=== PATIENT | female | born 1985 | race American Indian/Alaskan Native ===

== ENCOUNTER 2016-09-16 14:07 | Inpatient (IN) | payer OTHER, MEDICAID ==
[2016-09-16 15:09] LABS: Hematocrit 35.8 % (30.3-42.9); Hemoglobin 12.4 gm/dl (10.1-14.3); Mean Corpuscular HGB Conc 35 % (30-34); Mean Corpuscular Hemoglobin 30 pg (28-32); Mean Corpuscular Volume 87 fl (79-97); Platelet Count 239 K/mm3 (140-440); Red Blood Count 4.13 M/mm3 (3.65-5.03); Red Cell Distribution Width 14.2 % (13.2-15.2); White Blood Count 11.6 K/mm3 (4.5-11.0)
[2016-09-16 15:25] LABS: Alanine Aminotransferase 19 units/L (7-56); Lactate Dehydrogenase 195 units/L (91-180); Uric Acid 5.5 mg/dL (3.5-7.6)
--- NOTE | 2016-09-16 15:27 | History and Physical Report ---
History of Present Illness Date of examination: 09/16/16 Chief complaint: my feet are swollen History of present illness: Pt is a 30 year old Surya female HUAN 01/[birth year] at 24w1d who presents with c/o progressively worsening bilateral lower extremity edema for the past week. Her blood pressure in the office was noted to be 150/80s and upon entry into triage her pressures were 150-170/70s. She denies headache, blurry vision, RUQ pain and scotomata. She has had care at [facility] since 10 wks complicated by genital herpes, Hemoglobin C trait and limited anatomy with subsequent APA consult. She is GBS unknown. She has no prior h/o hypertension. Past History Past Medical History: no pertinent history, other (obesity) Past Surgical History: no surgical history Family/Genetic History: diabetes Social history: no significant social history - Obstetrical History Expected Date of Delivery: 01/05/17 Actual Gestation: 24 Week(s) 1 Day(s) : 2 Para: 1 Hx # Term Pregnancies: 1 Number of Pregnancies: 0 Spontaneous Abortions: 0 Induced : 0 Number of Living Children: 1 Medications and Allergies Allergies Allergy/AdvReac Type Severity Reaction Status Date / Time No Known Allergies Allergy Unverified 09/16/16 14:50 Review of Systems All systems: negative - Vital Signs Vital signs: Vital Signs Pulse Pulse Ox 82 98 09/16/16 14:29 09/16/16 14:29 Temp Pulse Resp BP Pulse Ox 98.2 F 76 18 177/93 99 09/16/16 14:33 09/16/16 15:24 09/16/16 14:33 09/16/16 15:22 09/16/16 15:24 - Physical Exam Breasts: Positive: deferred Cardiovascular: Regular rate Lungs: Positive: Clear to auscultation Abdomen: Positive: soft (obese). Negative: tenderness Uterus: Positive: enlarged (gravid ) Extremities: Positive: edema (2+) - Obstetrical FHR: auscultation normal Uterine Contraction Monitor Mode: External Uterine Contraction Pattern: Absent Uterine Tone Measurement Phase: Resting Results Result Diagrams: 09/16/16 14:40 09/16/16 14:40 Abnormal lab results 09/16/16 09/16/16 Range/Units 14:40 14:40 WBC 11.6 H (4.5-11.0) K/mm3 MCHC 35 H (30-34) % Creatinine 0.6 L (0.7-1.2) mg/dL Lactate Dehydrogenase 195 H (91-180) units/L All other labs normal. Assessment and Plan A: IUP at 24w1d Gestational Hypertension vs Preeclampsia Bilateral lower extremity edema Obesity P: Admit to labor and delivery Magnesium sulfate for seizure prophylaxis and neuroprotection Betamethasone for lung maturity ultrasound Begin 24 hr urine collection Antihypertensives as needed for BP greater than 160/110 MFM consult Closely monitor maternal and status
[2016-09-16] MEDS ORDERED: CALCIUM GLUCONATE IV ONE (15:29)
[2016-09-16] MEDS ORDERED: MAGNESIUM SULFATE 4GM/100ML 4 GM/100 ML BAG IV ONE (15:29)
[2016-09-16] MEDS ORDERED: COLACE PO PRN (15:29)
[2016-09-16] MEDS ORDERED: CELESTONE SOLUSPAN IM SCH (16:00)
[2016-09-16] MEDS ORDERED: MAGNESIUM SULFATE 40GM/1000ML 40 GM/1,000 ML BAG IV SCH (16:00)
[2016-09-16 16:05] LABS: Bilirubin,Urine Negative (Negative); Ketones,Urine Negative (Negative)
[2016-09-16 16:06] LABS: Blood,Urine Negative (Negative)
[2016-09-16 16:07] LABS: Leukocyte Esterase,Urine Negative (Negative); Nitrite,Urine Negative (Negative); Urobilinogen,Urine < 2.0 mg/dL (<2.0)
[2016-09-16 16:09] LABS: Mucus,Urine 3+ /HPF
[2016-09-16] MEDS: LACTATED RINGERS 1,000 ML IV SCH (17:50)
[2016-09-16] MEDS: APRESOLINE IV PRN ×2 (21:07→21:59)
[2016-09-17] MEDS: LACTATED RINGERS 1,000 ML IV SCH ×3 (02:29→22:21)
--- NOTE | 2016-09-17 08:46 | Consultation ---
History of Present Illness Consult date: 09/17/16 Requesting physician: KATRINA FONG History of present illness: 30 y/o HUAN 01/04/17 EGA at 24 2/7 weeks presenting with Elevated BP's and Edema Sent in from OB's office on 09/16/16 with elevated BP's in 150's/80's Triage [facility] BP's 150-170's Now BP's 162/83 and increased to 180/91 Sig Lower ext edema 3/4 DTR's 02/23 but on Mg Denies H/O CHTN Denies SARAVIA's Scot[place] or RUQ Pain Denies vag bleed, ctx's or leakage Pos FM's No complications ------ Labs 09/16/16 AST/ALT at 20/19 Plts at 239 H/h at 12.4/35.8 LDH increased at 190 Urine spot Prot at 100 serum creat at .6 ------ OB History 2004 at Term F 8'9" - No complications ------ No med , No Surg, Pos H/O HSV per ob note, No C/D/D, NKA ------ EFM -- 150's ----- [facility] US 09/16/16 JOSÉ at 10 cm 2 small fibroids - 2cm CL at 3.8 cm EFW ??? Not done ----- Exam Abd gravid no RUQ Pain Ext NT, 2-3/4 edema , no clonus ----- Past History Past Medical History: no pertinent history, other (obesity) Past Surgical History: no surgical history Family/Genetic History: diabetes - Obstetrical History : 2 Medications and Allergies Allergies Allergy/AdvReac Type Severity Reaction Status Date / Time No Known Allergies Allergy Unverified 09/16/16 14:50 Active Meds: Active Medications Acetaminophen (Tylenol) 650 mg PO Q4H PRN PRN Reason: Pain MILD(1-3)/Fever >100.5/SARAVIA Betamethasone Acet/Betameth SodPhos (Celestone Soluspan) 12 mg IM Q24HR GERMAINE Last Admin: 09/16/16 18:07 Dose: 12 mg Docusate Sodium (Colace) 100 mg PO Q12H PRN PRN Reason: Constipation Hydralazine HCl (Apresoline) 5 mg IV Q30MIN PRN PRN Reason: HTN SYS>170 &/OR DAYANA BP>110 Last Admin: 09/16/16 21:59 Dose: 5 mg Lactated Ringer's (Lactated Ringers) 1,000 mls @ 125 mls/hr IV DIRECT GERMAINE Last Admin: 09/17/16 02:29 Dose: 125 mls/hr Magnesium Sulfate (Magnesium Sulfate 40gm/1000ml) 40 gm in 1,000 mls @ 25 mls/ hr IV TITR GERMAINE PRN Reason: 1 GM/HR Stop: 09/17/16 15:59 Last Admin: 09/16/16 18:28 Dose: 1 gm/hr, 25 mls/hr Labetalol HCl (Normodyne) 100 mg PO BID GERMAINE Multivitamins/Iron/Calcium ( Vitamin) 1 each PO QDAY GERMAINE - Vital Signs Vital signs: Vital Signs Pulse Pulse Ox 82 98 09/16/16 14:29 09/16/16 14:29 Temp Pulse Resp BP Pulse Ox 97.7 F 82 20 180/91 98 09/17/16 07:40 09/17/16 08:34 09/17/16 07:40 09/17/16 08:19 09/17/16 08:34 Results Result Diagrams: 09/16/16 14:40 09/16/16 14:40 Abnormal lab results 09/16/16 09/16/16 09/17/16 Range/Units 14:40 14:40 00:00 WBC 11.6 H (4.5-11.0) K/mm3 MCHC 35 H (30-34) % Creatinine 0.6 L (0.7-1.2) mg/dL Magnesium 3.30 H (1.7-2.3) mg/dL Lactate Dehydrogenase 195 H (91-180) units/L 09/17/16 Range/Units 05:30 WBC (4.5-11.0) K/mm3 MCHC (30-34) % Creatinine (0.7-1.2) mg/dL Magnesium 3.40 H (1.7-2.3) mg/dL Lactate Dehydrogenase (91-180) units/L All other labs normal. Assessment and Plan Impression: 1. [place] IUP at 24 2/7 weeks 2. Gest HTN R/O Preeclampsia - 24 Hour Urine Pending 3. HSV per OB Note Recommendations: 1. Steroids for FLM 2. Mg for neuroprophylaxis 3. NICU Consult 4. PIH Labs repeat tomorrow CBC, CMP, LDH and Uric Acid 5. Labetalol 100 mg BID PO 6. Delivery for S/S of Preeclampsia with Severe Features on Compromise 7. IV hydralazine for BP's Sys > 160 or Diast > 110 8. Seq Leg Compressors 9. Please order US for EFW if Not Done 10. BPP and Cord dopplers starting at 26 weeks (twice per week) if still in hosp 11. EFM
[2016-09-17] MEDS: NORMODYNE PO SCH ×2 (10:31→22:17)
[2016-09-17] MEDS: PRENATAL VITAMIN PO SCH (10:32)
--- NOTE | 2016-09-17 10:48 | Ultrasound Report ---
ULTRASOUND OB LIMITED History: Preeclampsia, well being Technique: Transabdominal ultrasound with Doppler interrogation. Gestation: Single Position: Transverse, head to maternal left Amniotic Fluid: Normal JOSÉ = 10.0 cm Placenta: Fundal, right lateral Placental Grade: 0 Heart Rate: 156 BPM Cervical length: 3.8 cm (Normal > 3 cm)
--- NOTE | 2016-09-17 18:36 | Progress Note ---
Assessment and Plan HD 2 for this with chronic hypertension vs. pre-eclampsia. Patient still denies headache or visual changes. Her bps this afternoon were mostly in 130- 140/60-80. She received her first dose of steroids and will receive the second today. 24 hour urine is pending. Will repeat labs in the am Continue care. Subjective - Subjective Date of service: 09/17/16 Principal diagnosis: Chronic hypertension Patient reports: new complaints, movement normal Objective - Vital Signs Vital Signs: Vital Signs - 12hr 09/17/16 09/17/16 09/17/16 06:34 06:39 06:44 Temperature Pulse Rate 82 85 84 Respiratory Rate Blood Pressure O2 Sat by Pulse 98 97 98 Oximetry 09/17/16 09/17/16 09/17/16 06:49 06:52 06:54 Temperature Pulse Rate 86 80 83 Respiratory Rate Blood Pressure O2 Sat by Pulse 96 94 95 Oximetry 09/17/16 09/17/16 09/17/16 06:58 06:59 07:03 Temperature Pulse Rate 84 87 83 Respiratory Rate Blood Pressure O2 Sat by Pulse 94 96 93 Oximetry 09/17/16 09/17/16 09/17/16 07:04 07:09 07:14 Temperature Pulse Rate 83 84 80 Respiratory Rate Blood Pressure O2 Sat by Pulse 94 94 97 Oximetry 09/17/16 09/17/16 09/17/16 07:19 07:24 07:29 Temperature Pulse Rate 86 86 81 Respiratory Rate Blood Pressure 170/88 162/85 O2 Sat by Pulse 98 98 97 Oximetry 09/17/16 09/17/16 09/17/16 07:34 07:39 07:40 Temperature 97.7 F Pulse Rate 77 80 85 Respiratory 20 Rate Blood Pressure 162/85 O2 Sat by Pulse 99 98 Oximetry 09/17/16 09/17/16 09/17/16 07:44 07:49 07:54 Temperature Pulse Rate 82 82 86 Respiratory Rate Blood Pressure O2 Sat by Pulse 98 97 93 Oximetry 09/17/16 09/17/16 09/17/16 07:59 08:04 08:09 Temperature Pulse Rate 86 87 82 Respiratory Rate Blood Pressure O2 Sat by Pulse 96 97 97 Oximetry 09/17/16 09/17/16 09/17/16 08:14 08:19 08:24 Temperature Pulse Rate 83 82 86 Respiratory Rate Blood Pressure 180/91 O2 Sat by Pulse 97 97 98 Oximetry 09/17/16 09/17/16 09/17/16 08:29 08:34 08:39 Temperature Pulse Rate 86 82 82 Respiratory Rate Blood Pressure O2 Sat by Pulse 98 98 96 Oximetry 09/17/16 09/17/16 09/17/16 08:44 08:46 09:12 Temperature Pulse Rate 83 81 88 Respiratory Rate Blood Pressure 160/88 O2 Sat by Pulse 96 98 Oximetry 09/17/16 09/17/16 09/17/16 09:15 09:17 09:19 Temperature Pulse Rate 60 84 81 Respiratory Rate Blood Pressure 143/93 O2 Sat by Pulse 88 99 Oximetry 09/17/16 09/17/16 09/17/16 09:22 09:27 09:32 Temperature Pulse Rate 83 87 83 Respiratory Rate Blood Pressure O2 Sat by Pulse 98 97 97 Oximetry 09/17/16 09/17/16 09/17/16 09:37 09:42 09:47 Temperature Pulse Rate 80 89 80 Respiratory Rate Blood Pressure O2 Sat by Pulse 99 98 98 Oximetry 09/17/16 09/17/16 09/17/16 09:52 09:57 10:02 Temperature Pulse Rate 95 H 92 H 88 Respiratory Rate Blood Pressure O2 Sat by Pulse 97 97 96 Oximetry 09/17/16 09/17/16 09/17/16 10:07 10:12 10:16 Temperature Pulse Rate 95 H 88 83 Respiratory Rate Blood Pressure 152/81 O2 Sat by Pulse 98 98 Oximetry 09/17/16 09/17/16 09/17/16 10:17 10:19 10:22 Temperature Pulse Rate 83 82 82 Respiratory Rate Blood Pressure 166/79 O2 Sat by Pulse 97 97 Oximetry 09/17/16 09/17/16 09/17/16 10:27 10:31 10:32 Temperature Pulse Rate 81 82 89 Respiratory Rate Blood Pressure 166/79 O2 Sat by Pulse 98 98 Oximetry 09/17/16 09/17/16 09/17/16 10:37 10:42 10:47 Temperature Pulse Rate 87 87 79 Respiratory Rate Blood Pressure O2 Sat by Pulse 96 98 97 Oximetry 09/17/16 09/17/16 09/17/16 10:52 10:57 11:02 Temperature Pulse Rate 83 82 83 Respiratory Rate Blood Pressure O2 Sat by Pulse 96 96 96 Oximetry 0709/17/16 09/17/16 11:07 11:12 11:17 Temperature Pulse Rate 81 81 90 Respiratory Rate Blood Pressure O2 Sat by Pulse 96 96 97 Oximetry 09/17/16 09/17/16 09/17/16 11:19 11:22 11:27 Temperature Pulse Rate 85 85 96 H Respiratory Rate Blood Pressure 160/80 O2 Sat by Pulse 97 97 Oximetry 09/17/16 09/17/16 09/17/16 11:32 11:37 11:42 Temperature Pulse Rate 85 95 H 96 H Respiratory Rate Blood Pressure O2 Sat by Pulse 97 97 97 Oximetry 09/17/16 09/17/16 09/17/16 11:47 11:52 11:57 Temperature Pulse Rate 91 H 89 91 H Respiratory Rate Blood Pressure O2 Sat by Pulse 97 96 95 Oximetry 09/17/16 09/17/16 09/17/16 12:02 12:07 12:12 Temperature Pulse Rate 89 90 97 H Respiratory Rate Blood Pressure O2 Sat by Pulse 97 97 97 Oximetry 09/17/16 09/17/16 09/17/16 12:17 12:19 12:22 Temperature Pulse Rate 94 H 93 H 107 H Respiratory Rate Blood Pressure 145/79 O2 Sat by Pulse 97 97 Oximetry 09/17/16 09/17/16 09/17/16 12:27 12:32 12:37 Temperature Pulse Rate 91 H 89 88 Respiratory Rate Blood Pressure O2 Sat by Pulse 98 98 99 Oximetry 09/17/16 09/17/16 09/17/16 12:42 12:47 12:52 Temperature Pulse Rate 89 90 89 Respiratory Rate Blood Pressure O2 Sat by Pulse 98 99 98 Oximetry 09/17/16 09/17/16 09/17/16 12:57 13:02 13:07 Temperature Pulse Rate 90 94 H 94 H Respiratory Rate Blood Pressure O2 Sat by Pulse 99 97 97 Oximetry 09/17/16 09/17/16 09/17/16 13:12 13:14 13:17 Temperature Pulse Rate 85 131 H 95 H Respiratory Rate Blood Pressure O2 Sat by Pulse 99 81 L 97 Oximetry 09/17/16 09/17/16 09/17/16 13:19 13:22 13:27 Temperature Pulse Rate 83 89 91 H Respiratory Rate Blood Pressure 136/71 O2 Sat by Pulse 99 97 Oximetry 09/17/16 09/17/16 09/17/16 13:32 13:37 13:38 Temperature Pulse Rate 93 H 89 96 H Respiratory Rate Blood Pressure O2 Sat by Pulse 100 99 92 Oximetry 09/17/16 09/17/16 09/17/16 13:42 13:47 13:52 Temperature Pulse Rate 90 90 91 H Respiratory Rate Blood Pressure O2 Sat by Pulse 100 99 98 Oximetry 09/17/16 09/17/16 09/17/16 13:57 14:02 14:07 Temperature Pulse Rate 93 H 91 H 90 Respiratory Rate Blood Pressure O2 Sat by Pulse 98 98 98 Oximetry 09/17/16 09/17/16 09/17/16 14:12 14:17 14:19 Temperature Pulse Rate 88 88 89 Respiratory Rate Blood Pressure 132/63 O2 Sat by Pulse 97 97 Oximetry 09/17/16 09/17/16 09/17/16 14:22 14:27 14:32 Temperature Pulse Rate 87 88 89 Respiratory Rate Blood Pressure O2 Sat by Pulse 99 98 97 Oximetry 09/17/16 09/17/16 09/17/16 14:37 14:42 14:47 Temperature Pulse Rate 98 H 88 87 Respiratory Rate Blood Pressure O2 Sat by Pulse 97 98 95 Oximetry 09/17/16 09/17/16 09/17/16 14:52 14:57 15:02 Temperature Pulse Rate 90 85 100 H Respiratory Rate Blood Pressure O2 Sat by Pulse 94 97 98 Oximetry 09/17/16 09/17/16 09/17/16 15:07 15:12 15:14 Temperature Pulse Rate 88 89 85 Respiratory Rate Blood Pressure O2 Sat by Pulse 97 96 94 Oximetry 09/17/16 09/17/16 09/17/16 15:17 15:19 15:22 Temperature Pulse Rate 86 89 86 Respiratory Rate Blood Pressure 141/75 O2 Sat by Pulse 96 97 Oximetry 09/17/16 09/17/16 09/17/16 15:27 15:32 15:37 Temperature Pulse Rate 84 80 82 Respiratory Rate Blood Pressure O2 Sat by Pulse 97 94 98 Oximetry 09/17/16 09/17/16 09/17/16 15:42 15:47 15:52 Temperature Pulse Rate 79 81 84 Respiratory Rate Blood Pressure O2 Sat by Pulse 97 97 97 Oximetry 09/17/16 09/17/16 09/17/16 15:57 16:02 16:07 Temperature Pulse Rate 81 83 79 Respiratory Rate Blood Pressure O2 Sat by Pulse 99 96 97 Oximetry 09/17/16 09/17/16 09/17/16 16:12 16:17 16:19 Temperature Pulse Rate 82 86 85 Respiratory Rate Blood Pressure 137/65 O2 Sat by Pulse 98 99 Oximetry 09/17/16 09/17/16 09/17/16 16:22 16:27 16:32 Temperature Pulse Rate 84 89 83 Respiratory Rate Blood Pressure O2 Sat by Pulse 97 97 98 Oximetry 09/17/16 09/17/16 09/17/16 16:37 16:42 16:47 Temperature Pulse Rate 83 84 79 Respiratory Rate Blood Pressure O2 Sat by Pulse 98 98 99 Oximetry 09/17/16 09/17/16 09/17/16 16:52 16:57 17:02 Temperature Pulse Rate 83 84 80 Respiratory Rate Blood Pressure O2 Sat by Pulse 99 99 99 Oximetry 09/17/16 09/17/16 09/17/16 17:07 17:12 17:17 Temperature Pulse Rate 82 82 82 Respiratory Rate Blood Pressure O2 Sat by Pulse 98 98 98 Oximetry 09/17/16 09/17/16 09/17/16 17:22 17:27 17:32 Temperature Pulse Rate 88 84 82 Respiratory Rate Blood Pressure O2 Sat by Pulse 98 99 97 Oximetry 09/17/16 09/17/16 09/17/16 17:37 17:42 17:47 Temperature Pulse Rate 85 87 83 Respiratory Rate Blood Pressure O2 Sat by Pulse 97 97 98 Oximetry 09/17/16 09/17/16 09/17/16 17:52 17:57 18:02 Temperature Pulse Rate 83 85 80 Respiratory Rate Blood Pressure O2 Sat by Pulse 97 98 98 Oximetry 09/17/16 09/17/16 09/17/16 18:07 18:12 18:17 Temperature Pulse Rate 91 H 83 87 Respiratory Rate Blood Pressure O2 Sat by Pulse 99 98 98 Oximetry 09/17/16 09/17/16 09/17/16 18:19 18:22 18:27 Temperature Pulse Rate 77 82 81 Respiratory Rate Blood Pressure 166/84 O2 Sat by Pulse 99 98 Oximetry - Exam Breasts: deferred Cardiovascular: Regular rate, Normal S1, Normal S2 Lungs: Clear to auscultation, Normal air movement Extremities: edema (+1 from knees to ankles) Deep Tendon Reflex Grade: Normal +2 - Labs Labs: Abnormal Labs 09/16/16 09/16/16 09/17/16 14:40 14:40 00:00 WBC 11.6 H MCHC 35 H Creatinine 0.6 L Magnesium 3.30 H Lactate Dehydrogenase 195 H 09/17/16 09/17/16 05:30 12:11 WBC MCHC Creatinine Magnesium 3.40 H 3.50 H Lactate Dehydrogenase Laboratory Results - last 24 hr 09/17/16 09/17/16 09/17/16 00:00 05:30 12:11 Magnesium 3.30 H 3.40 H 3.50 H
[2016-09-18] MEDS: LACTATED RINGERS 1,000 ML IV SCH (10:04)
[2016-09-18] MEDS: NORMODYNE PO SCH ×2 (10:05→22:02)
[2016-09-18] MEDS: PRENATAL VITAMIN PO SCH (10:05)
[2016-09-19] MEDS: LACTATED RINGERS 1,000 ML IV SCH ×3 (04:03→19:57)
[2016-09-19] MEDS: APRESOLINE IV PRN ×4 (04:56→17:26)
--- NOTE | 2016-09-19 07:43 | Admit Criteria Form ---
Admission Criteria Documentation: HYPERTENSIVE DISORDERS OF Clinical Indications for Admission to Inpatient Care ( [place]/check or initial the applicable condition/criteria) Admission is indicated for 1 or more of the following (1)(2)(3)(4)(5)(6)(7): [ ]I. Eclampsia[A][B] [ ]II. Preeclampsia with severe features (ie, severe preeclampsia) indicated by 1 or more of the following[B][C]: [ ]a) SBP greater than or equal to 160 mm Hg or DBP greater than or equal to 110 mm Hg on 2 occasions at least 4 hours apart while the patient is at bed rest ( UNLESS antihypertensive therapy is initiated before this time)(5) [ ]b) Platelet count less than 100,000/mm3 (100 x109/L) [ ]c) Impaired liver function as indicated by 1 or more of the following: [ ]i) Elevation of liver enzymes (eg, SGOT, SGPT) to twice normal concentration [ ]ii) Severe persistent right upper quadrant or epigastric pain unresponsive to medication and not accounted for by alternative diagnosis [ ]d) Progressive renal insufficiency indicated by 1 or more of the following : [ ]i) Serum creatinine concentration greater than 1.1 mg/dL (97 micromoles/L) [ ]ii) Doubling (from baseline) of serum creatinine concentration in the absence of other renal disease [ ]e) Pulmonary edema [ ]f) Cerebral or visual symptoms (eg, headache, Altered mental status, changes in vision) [ ]III. Delivery planned due to nonsevere preeclampsia as indicated by ALL of the following: [ ]a) Nonsevere preeclampsia present as indicated by ALL of the following: [ ]i) Woman at 20 or more weeks' gestation [ ]ii) New-onset SBP greater than or equal to 140 mm Hg but less than 160 mm Hg or DBP greater than or equal to 90 mm Hg but less than 110 mm Hg on 2 occasions at least 4 hours apart [ ]iii) Proteinuria present as indicated by 1 or more of the following : [ ]A) Urinary protein excretion greater than or equal to 300 mg per 24- hour collection (or this amount extrapolated from a shorter timed collection) [ ]B) Protein/creatinine ratio greater than or equal to 0.3 (measured in mg/dL) [ ]b) Delivery indicated due to 1 or more of the following: [ ]i) Gestational age of 37 0/7 weeks or more [ ]ii) Gestational age of 34 0/7 weeks to 36 6/7 weeks and 1 or more of the following: [ ]A) Progressive labor or rupture of membranes [ ]B) Abnormal biophysical profile [ ]C) Suspected abruptio placentae [ ]D) Ultrasound estimate of weight less than 5th percentile [ ]E) Other indication for delivery [ ]IV. Delivery planned due to gestational hypertension[D] because of 1 or more of the following: [ ]a) Delivery indicated because gestational age of 37 0/7 weeks or more has been reached [ ]b) Gestational age of 34 0/7 weeks to 36 6/7 weeks for which delivery is indicated because of 1 or more of the following: [ ]i) Progressive labor or rupture of membranes [ ]ii). Abnormal biophysical profile [ ]iii). Suspected abruptio placentae [ ]iv). Ultrasound estimate of weight less than 5th percentile [ ]v). Other indication for delivery [ ]V. Hypertension of any category[E] during with acute end organ damage as indicated by 1 or more of the following: [ ]a) Hypertensive encephalopathy (eg, Altered mental status that is severe or persistent )(13) [ ]b) Cerebral infarction [ ]c) Intracranial hemorrhage [ ]d) Myocardial ischemia or infarction [ ]e) Pulmonary edema f) Aortic dissection [ ]f) Aortic dissection [ ]g) Seizure [ ]h) Papilledema [ ]i) Microangiopathic hemolytic anemia [ ]j) Visual loss [ ]k) Acute renal failure [ ]) Hypertension during pregnancywith evidence of compromise as indicated by 1 or more of the following: [ ]a) Abnormal heart tones [ ]b) Abnormal stress test [ ]c) Abnormal biophysical profile [X]VII) patient requires inpatient control of blood pressure indicated by (see Hypertensive Disorders of : Observation Care ISC guideline as appropriate) ALL of the following: [X]a) SBP is greater than or equal to 160 mm Hg or DBP is greater than or equal to 105 mm Hg [X]b) Blood pressure cannot be reduced below these levels with outpatient or observation care treatment (eg, oral medications not effective) Extended stay beyond goal length of stay may be needed for (1)(2)(12)(27) : [ ]a) Eclampsia [ ]b) Ongoing compromise [ ]c) Complications of hypertensive disorders of [ ]d) Active comorbidities (eg, heart failure, poorly controlled diabetes, renal insufficiency) [ ]e) Persistent hypertension [ ]f) Delivery planned The original [facility] [employer] / TLL content created by [facility] has been revised. The portions of the content which have been revised are identified through the use of italic text or in bold, and [facility] has neither reviewed nor approved the modified material. All other unmodified content is copyright [facility]. Please see references footnoted in the original [facility] edition 2017. Admission Criteria Met: Yes
--- NOTE | 2016-09-19 09:57 | Progress Note ---
Assessment and Plan A/P IUP 24+3 weeks gest HTN vs Pree PIH labs today BP 150-170/70s on labetolol 100 mg bid continue present mgt Subjective - Subjective Date of service: 09/19/16 Principal diagnosis: Chronic hypertension Patient reports: movement normal, no new complaints, no loss of fluid, no vaginal bleeding, no contractions Objective - Vital Signs Vital Signs: Vital Signs - 12hr 09/18/16 09/18/16 09/18/16 21:59 22:02 22:04 Pulse Rate 72 80 79 Blood Pressure 184/87 O2 Sat by Pulse 99 99 Oximetry 09/18/16 09/18/16 09/18/16 22:09 22:14 22:15 Pulse Rate 72 82 76 Blood Pressure 146/71 O2 Sat by Pulse 99 99 Oximetry 09/18/16 09/18/16 09/18/16 22:24 22:29 22:34 Pulse Rate 90 74 75 Blood Pressure O2 Sat by Pulse 97 97 98 Oximetry 09/18/16 09/18/16 09/18/16 22:39 22:44 22:49 Pulse Rate 80 85 85 Blood Pressure O2 Sat by Pulse 98 99 100 Oximetry 09/18/16 09/18/16 09/18/16 22:54 22:59 23:04 Pulse Rate 76 75 79 Blood Pressure 156/73 O2 Sat by Pulse 99 99 99 Oximetry 09/18/16 09/18/16 09/18/16 23:14 23:19 23:24 Pulse Rate 75 74 77 Blood Pressure O2 Sat by Pulse 99 98 99 Oximetry 09/18/16 09/18/16 09/18/16 23:29 23:34 23:39 Pulse Rate 74 71 80 Blood Pressure O2 Sat by Pulse 98 100 99 Oximetry 09/18/16 09/18/16 09/18/16 23:44 23:49 23:53 Pulse Rate 73 90 74 Blood Pressure 152/71 O2 Sat by Pulse 99 99 Oximetry 09/18/16 09/19/16 09/19/16 23:54 00:00 00:05 Pulse Rate 78 85 68 Blood Pressure O2 Sat by Pulse 98 98 98 Oximetry 09/19/16 09/19/16 09/19/16 00:10 00:15 00:20 Pulse Rate 79 73 69 Blood Pressure O2 Sat by Pulse 97 98 97 Oximetry 09/19/16 09/19/16 09/19/16 00:25 00:30 00:35 Pulse Rate 69 78 69 Blood Pressure O2 Sat by Pulse 97 99 98 Oximetry 09/19/16 09/19/16 09/19/16 00:40 00:45 00:50 Pulse Rate 88 71 66 Blood Pressure O2 Sat by Pulse 99 98 100 Oximetry 09/19/16 09/19/16 09/19/16 00:54 00:55 01:00 Pulse Rate 65 71 69 Blood Pressure 153/69 O2 Sat by Pulse 99 99 Oximetry 09/19/16 09/19/16 09/19/16 01:05 01:10 01:15 Pulse Rate 70 70 68 Blood Pressure O2 Sat by Pulse 98 98 98 Oximetry 09/19/16 09/19/16 09/19/16 01:20 01:25 01:30 Pulse Rate 69 68 73 Blood Pressure O2 Sat by Pulse 98 99 98 Oximetry 09/19/16 09/19/16 09/19/16 01:35 01:40 01:43 Pulse Rate 69 71 87 Blood Pressure O2 Sat by Pulse 98 98 94 Oximetry 09/19/16 09/19/16 09/19/16 01:45 01:50 01:53 Pulse Rate 73 81 83 Blood Pressure 152/81 O2 Sat by Pulse 97 99 Oximetry 09/19/16 09/19/16 09/19/16 01:55 02:02 02:07 Pulse Rate 87 88 63 Blood Pressure O2 Sat by Pulse 97 98 98 Oximetry 09/19/16 09/19/16 09/19/16 02:12 02:17 02:22 Pulse Rate 62 61 64 Blood Pressure O2 Sat by Pulse 98 99 98 Oximetry 09/19/16 09/19/16 09/19/16 02:27 02:32 02:37 Pulse Rate 61 64 68 Blood Pressure O2 Sat by Pulse 99 99 99 Oximetry 09/19/16 09/19/16 09/19/16 02:42 02:47 02:52 Pulse Rate 64 64 62 Blood Pressure O2 Sat by Pulse 99 99 99 Oximetry 09/19/16 09/19/16 09/19/16 02:53 02:57 03:02 Pulse Rate 65 64 74 Blood Pressure 179/81 O2 Sat by Pulse 99 98 Oximetry 09/19/16 09/19/16 09/19/16 03:05 03:10 03:11 Pulse Rate 57 L 67 90 Blood Pressure O2 Sat by Pulse 55 L 58 L 100 Oximetry 09/19/16 09/19/16 09/19/16 03:16 03:21 03:23 Pulse Rate 58 L 63 71 Blood Pressure O2 Sat by Pulse 99 98 89 Oximetry 09/19/16 09/19/16 09/19/16 03:26 03:31 03:36 Pulse Rate 63 70 58 L Blood Pressure O2 Sat by Pulse 99 99 98 Oximetry 09/19/16 09/19/16 09/19/16 03:41 03:46 03:51 Pulse Rate 60 57 L 57 L Blood Pressure O2 Sat by Pulse 97 98 99 Oximetry 09/19/16 09/19/16 09/19/16 03:53 03:56 04:01 Pulse Rate 68 60 59 L Blood Pressure 185/82 O2 Sat by Pulse 98 98 Oximetry 09/19/16 09/19/16 09/19/16 04:06 04:11 04:16 Pulse Rate 61 57 L 79 Blood Pressure O2 Sat by Pulse 98 99 97 Oximetry 09/19/16 09/19/16 09/19/16 04:21 04:26 04:31 Pulse Rate 56 L 60 59 L Blood Pressure O2 Sat by Pulse 99 98 98 Oximetry 09/19/16 09/19/16 09/19/16 04:36 04:41 04:43 Pulse Rate 60 60 76 Blood Pressure 204/104 O2 Sat by Pulse 98 98 Oximetry 09/19/16 09/19/16 09/19/16 04:45 04:46 04:56 Pulse Rate 75 81 82 Blood Pressure 168/73 168/73 O2 Sat by Pulse 98 99 Oximetry 09/19/16 09/19/16 09/19/16 05:01 05:06 05:11 Pulse Rate 68 67 68 Blood Pressure O2 Sat by Pulse 98 100 99 Oximetry 09/19/16 09/19/16 09/19/16 05:16 05:21 05:26 Pulse Rate 68 70 80 Blood Pressure O2 Sat by Pulse 100 100 100 Oximetry 09/19/16 09/19/16 09/19/16 05:31 05:36 05:41 Pulse Rate 65 58 L 64 Blood Pressure O2 Sat by Pulse 99 98 100 Oximetry 09/19/16 09/19/16 09/19/16 05:46 05:51 05:53 Pulse Rate 65 70 84 Blood Pressure 176/90 O2 Sat by Pulse 99 99 Oximetry 09/19/16 09/19/16 09/19/16 05:56 06:01 06:06 Pulse Rate 67 81 Blood Pressure O2 Sat by Pulse 99 99 92 Oximetry 09/19/16 09/19/16 09/19/16 06:11 06:12 06:16 Pulse Rate 67 73 67 Blood Pressure 172/79 O2 Sat by Pulse 99 69 L 99 Oximetry 09/19/16 09/19/16 09/19/16 06:21 06:26 06:30 Pulse Rate 65 67 77 Blood Pressure 172/79 O2 Sat by Pulse 99 99 Oximetry 09/19/16 09/19/16 09/19/16 06:31 06:32 06:36 Pulse Rate 63 66 69 Blood Pressure 189/91 O2 Sat by Pulse 98 98 Oximetry 09/19/16 09/19/16 09/19/16 06:41 06:46 06:51 Pulse Rate 71 80 68 Blood Pressure O2 Sat by Pulse 99 98 99 Oximetry 09/19/16 09/19/16 09/19/16 06:56 07:01 07:02 Pulse Rate 73 66 68 Blood Pressure 175/82 O2 Sat by Pulse 99 99 Oximetry 09/19/16 09/19/16 09/19/16 07:06 07:11 07:16 Pulse Rate 71 69 65 Blood Pressure O2 Sat by Pulse 99 99 99 Oximetry 09/19/16 09/19/16 09/19/16 07:21 07:26 07:31 Pulse Rate 66 65 66 Blood Pressure O2 Sat by Pulse 99 99 99 Oximetry 09/19/16 09/19/16 09/19/16 07:32 07:38 07:43 Pulse Rate 71 82 74 Blood Pressure 175/81 O2 Sat by Pulse 99 98 Oximetry 09/19/16 09/19/16 09/19/16 07:48 07:53 07:58 Pulse Rate 70 82 70 Blood Pressure O2 Sat by Pulse 97 99 99 Oximetry 09/19/16 09/19/16 09/19/16 08:03 08:08 08:13 Pulse Rate 68 67 68 Blood Pressure O2 Sat by Pulse 99 99 99 Oximetry 09/19/16 09/19/16 09/19/16 08:18 08:23 08:29 Pulse Rate 68 72 74 Blood Pressure O2 Sat by Pulse 100 90 100 Oximetry 09/19/16 09/19/16 09/19/16 08:31 08:32 08:34 Pulse Rate 70 72 73 Blood Pressure 179/84 152/77 O2 Sat by Pulse 99 Oximetry 09/19/16 09/19/16 09/19/16 08:39 08:42 08:44 Pulse Rate 75 73 71 Blood Pressure 156/83 O2 Sat by Pulse 99 99 Oximetry 09/19/16 09/19/16 09/19/16 08:49 08:54 08:59 Pulse Rate 74 74 74 Blood Pressure O2 Sat by Pulse 100 99 99 Oximetry 09/19/16 09/19/16 09/19/16 09:04 09:09 09:14 Pulse Rate 70 78 74 Blood Pressure O2 Sat by Pulse 99 98 100 Oximetry 09/19/16 09/19/16 09/19/16 09:19 09:24 09:29 Pulse Rate 77 79 75 Blood Pressure O2 Sat by Pulse 99 99 98 Oximetry 09/19/16 09/19/16 09/19/16 09:33 09:34 09:39 Pulse Rate 67 72 85 Blood Pressure O2 Sat by Pulse 89 99 99 Oximetry 09/19/16 09/19/16 09/19/16 09:42 09:44 09:49 Pulse Rate 68 75 80 Blood Pressure 162/77 O2 Sat by Pulse 99 99 Oximetry - Exam Breasts: deferred Cardiovascular: Regular rate, Normal S1 Abdomen: Present: normal appearance, soft, normal bowel sounds Vulva: both: normal Uterus: Present: normal, firm. Absent: bogginess, tenderness FHR: auscultation normal, category 1 Uterine Contraction Monitor Mode: External - Labs Labs: Abnormal Labs 09/16/16 09/16/16 09/16/16 14:40 14:40 15:34 WBC 11.6 H MCHC 35 H Creatinine 0.6 L Magnesium Lactate Dehydrogenase 195 H Ur Total Protein 24 Hr 966.00 H Urine Total Protein 46 H 09/17/16 09/17/16 09/17/16 00:00 05:30 12:11 WBC MCHC Creatinine Magnesium 3.30 H 3.40 H 3.50 H Lactate Dehydrogenase Ur Total Protein 24 Hr Urine Total Protein 09/17/16 18:02 WBC MCHC Creatinine Magnesium 3.60 H Lactate Dehydrogenase Ur Total Protein 24 Hr Urine Total Protein
[2016-09-19] MEDS: NORMODYNE PO SCH ×3 (10:23→22:01)
[2016-09-19] MEDS: PRENATAL VITAMIN PO SCH (10:23)
[2016-09-19 12:28] LABS: Basophils % (Auto) 0.2 % (0.0-1.8); Eosinophils % (Auto) 0.1 % (0.0-4.3); Hematocrit 34.6 % (30.3-42.9); Hemoglobin 11.7 gm/dl (10.1-14.3); Mean Corpuscular HGB Conc 34 % (30-34); Mean Corpuscular Hemoglobin 30 pg (28-32); Mean Corpuscular Volume 88 fl (79-97); Platelet Count 239 K/mm3 (140-440); Red Blood Count 3.92 M/mm3 (3.65-5.03); Red Cell Distribution Width 14.6 % (13.2-15.2); White Blood Count 15.3 K/mm3 (4.5-11.0)
--- NOTE | 2016-09-19 12:46 | Consultation ---
History of Present Illness Reason for consult: other (Pt is a 30 year old female HUAN [birth year] at 24w4d who presented with complaint of progressively worsening bilateral lower extremity edema for the past week. Her blood pressure in the office was noted to be 150/80s and upon entry into triage her pressures were 150-170/70s. She denies headache, blurry vision, RUQ pain and scotomata. She has had care at [facility] since 10 wks. Patient has an inital [facility] consult appointment on 09/21/16. Today's serial BPs 160-170's/80-90 under medical regimen of Labetalol 100 mg PO BID and 3 doses of Hydralazine . Today's assessment denies signs and symptoms of PreEclampsia . Trace edema noted ) Past History Past Medical History: no pertinent history, other (obesity) Past Surgical History: no surgical history Family/Genetic History: diabetes - Obstetrical History : 2 Medications and Allergies Allergies Allergy/AdvReac Type Severity Reaction Status Date / Time No Known Allergies Allergy Unverified 09/16/16 14:50 Active Meds: Active Medications Acetaminophen (Tylenol) 650 mg PO Q4H PRN PRN Reason: Pain MILD(1-3)/Fever >100.5/SARAVIA Betamethasone Acet/Betameth SodPhos (Celestone Soluspan) 12 mg IM Q24HR [facility] Last Admin: 09/16/16 18:07 Dose: 12 mg Docusate Sodium (Colace) 100 mg PO Q12H PRN PRN Reason: Constipation Hydralazine HCl (Apresoline) 5 mg IV Q30MIN PRN PRN Reason: HTN SYS>170 &/OR DAYANA BP>110 Last Admin: 09/19/16 12:00 Dose: 5 mg Lactated Ringer's (Lactated Ringers) 1,000 mls @ 125 mls/hr IV DIRECT [facility] Last Admin: 09/19/16 11:27 Dose: 125 mls/hr Labetalol HCl (Normodyne) 100 mg PO BID [facility] Last Admin: 09/19/16 10:23 Dose: 100 mg Multivitamins/Iron/Calcium ( Vitamin) 1 each PO QDAY [facility] Last Admin: 09/19/16 10:23 Dose: 1 each Review of Systems Constitutional: no fever, no chills Eyes: no pain, no photophobia, no blind spots Ears, nose, mouth and throat: no headache, no vertigo Cardiovascular: leg edema (LLE trace edema ), no chest pain, no palpitations, no rapid/irregular heart beat, no syncope, no shortness of breath Respiratory: no shortness of breath Breasts: no deferred Gastrointestinal: no abdominal pain Genitourinary: no vaginal bleeding, no vaginal discharge, no leakage of fluid, no contractions Musculoskeletal: no low back pain Integumentary: no rash Neurological: no seizures, no syncope, no headaches, no double vision, no loss of vision Psychiatric: no depression Hematologic/Lymphatic: no easy bruising, no easy bleeding Allergic/Immunologic: no wheezing - Vital Signs Vital signs: Vital Signs Pulse Pulse Ox 82 98 09/16/16 14:29 09/16/16 14:29 Temp Pulse Resp BP Pulse Ox 97.7 F 82 18 146/65 99 09/18/16 21:12 09/19/16 12:36 09/18/16 21:12 09/19/16 12:36 09/19/16 12:36 - Physical Exam Breasts: Positive: deferred Cardiovascular: Regular rate Lungs: Positive: Normal air movement Abdomen: Negative: tenderness, guarding Uterus: Positive: other (Gravid and NT ). Negative: tender Extremities: Positive: edema (trace edema ) - Obstetrical FHR: auscultation normal (per RN ) Uterine Contraction Monitor Mode: Palpation (no contractions palpated) Results Result Diagrams: 09/19/16 11:07 09/16/16 14:40 Abnormal lab results 09/19/16 Range/Units 11:07 WBC 15.3 H (4.5-11.0) K/mm3 [place] % (Auto) 11.1 H (0.0-7.3) % [place] # 1.7 H (0.0-0.8) K/mm3 Seg Neutrophils # 10.1 H (1.8-7.7) K/mm3 All other labs normal. Ultrasound: report reviewed ([facility] 09/16/16 24.1 weeks + FHT cervical length 3.8 cm JOSÉ of 10.0 cm Two small uterine fibroids noted ) Assessment and Plan Impression: 1. [place] IUP at 24 4/7 weeks 2. Gest HTN R/O Preeclampsia 3. HSV per OB Note 4. S/P Steroids for FLM 5. S/P Mg for neuroprophylaxis 6. S/P NICU Consult 7. Increased LDH 8. Protein, 24 hr urine -996 9. Moderate BP control under Labetalol 100 mg PO BID/ 3 doses of PRN of Hydralazine 10. Obesity Recommendations: 1. Remain in patient management 2. Repeat PIH labs today CBC, CMP, LDH and Uric Acid 5. Labetalol 200 mg PO TID 6. Delivery for S/S of Preeclampsia with Severe Features on Compromise 7. IV hydralazine for BP's Sys > 160 or Diast > 110 8. Seq Leg Compressors 9. US for EFW ordered 10. If still in patient BPP and Cord dopplers starting at 26 weeks (twice per week) if still in hosp
[2016-09-19 12:55] LABS: Alanine Aminotransferase 16 units/L (7-56); Albumin 2.8 g/dL (3.9-5); Albumin/Globulin Ratio 0.9 %; Alkaline Phosphatase 75 units/L (35-129); Anion Gap 16 mmol/L; Blood Urea Nitrogen 7 mg/dL (7-17); Calcium 8.2 mg/dL (8.4-10.2); Carbon Dioxide 23 mmol/L (22-30); Chloride 100.7 mmol/L (98-107); Glucose 108 mg/dL (65-100); Lactate Dehydrogenase 193 units/L (91-180); Potassium 3.8 mmol/L (3.6-5.0); Sodium 136 mmol/L (137-145); Total Protein 5.9 g/dL (6.3-8.2); Uric Acid 4.1 mg/dL (3.5-7.6)
[2016-09-20] MEDS: APRESOLINE IV PRN ×3 (02:29→21:22)
[2016-09-20] MEDS: LACTATED RINGERS 1,000 ML IV SCH ×3 (04:51→20:47)
[2016-09-20] MEDS: NORMODYNE PO SCH ×3 (06:27→21:46)
[2016-09-20] MEDS: PRENATAL VITAMIN PO SCH (09:20)
--- NOTE | 2016-09-20 09:36 | Ultrasound Report ---
OB ULTRASOUND GREATER THAN 14 WEEKS - TRANSABDOMINAL AND TRANSVAGINAL INDICATION: Elevated blood pressure and obesity. Evaluate cervical length. COMPARISON: 09/08/2016 TECHNIQUE: Transabdominal grayscale ultrasound with Doppler interrogation.Transvaginal exam to evaluate the cervix also performed. Gestation: [place] Position: Breech. foot and few loops of cord also noted inferiorly near the internal os. Amniotic Fluid: WNL (7-24 cm) JOSÉ = 12.6 cm Placenta: Posterior, fundal Placental Grade: 0 Heart Rate: 152 BPM Cervical length: 5 cm (Normal > 3 cm) BPD: 5.6 cm = 23 w 1 d HC: 21.6 cm = 23 w 4 d AC: 19.3 cm = 24 w 0 d FL: 4.4 cm = 24 w 3 d HC/AC Ratio: 1.12 Cephalic Index: 76.6 Estimated Weight: 656 grams Clinical age = 24 w 4 d EDC: 01/05/2017 US Gest. Age = 23 w 6 d EDC: 01/10/2017 CONCLUSION: Single, viable intrauterine gestation with ultrasound estimated age of 23 weeks and 6 days and EDC of 01/10/2017, currently in breech lie with details, as above. Thank you for the opportunity to participate in this patient's care.
--- NOTE | 2016-09-20 12:25 | Progress Note ---
Assessment and Plan - Patient Problems (1) Hypertension affecting Current Visit: Yes Status: Acute Qualifiers: Trimester: T Plan to address problem: hypertension uncontrolled with labetalolo will add 2nd agent (Aldomet 500mg BID) will continue inpatient treatment until hypertension is better controlled. Subjective - Subjective Date of service: 09/20/16 Principal diagnosis: Chronic hypertension Interval history: 30y/o @ 24+5 weeks admitted for uncontrolled hypertension. The patient had an adjustment to her labetalol yesterday to 200mg Q8hr without any improvement in her blood pressure. The patient states she feels fine. She denies any headache, scotomata, RUQ pain. Patient reports: movement normal, no new complaints, no loss of fluid, no vaginal bleeding, no contractions Objective - Vital Signs Vital Signs: Vital Signs - 12hr 09/20/16 09/20/16 09/20/16 00:26 00:31 00:36 Temperature Pulse Rate 78 76 77 Respiratory Rate Blood Pressure O2 Sat by Pulse 98 97 98 Oximetry 09/20/16 09/20/16 09/20/16 00:41 00:46 00:51 Temperature Pulse Rate 72 66 66 Respiratory Rate Blood Pressure O2 Sat by Pulse 98 98 98 Oximetry 09/20/16 09/20/16 09/20/16 00:56 01:01 01:06 Temperature Pulse Rate 63 65 69 Respiratory Rate Blood Pressure O2 Sat by Pulse 99 98 98 Oximetry 09/20/16 09/20/16 09/20/16 01:11 01:15 01:16 Temperature Pulse Rate 65 73 66 Respiratory Rate Blood Pressure 172/81 O2 Sat by Pulse 98 99 Oximetry 09/20/16 09/20/16 09/20/16 01:21 01:26 01:31 Temperature Pulse Rate 86 90 77 Respiratory Rate Blood Pressure O2 Sat by Pulse 97 93 96 Oximetry 09/20/16 09/20/16 09/20/16 01:32 01:36 01:41 Temperature Pulse Rate 78 96 H 95 H Respiratory Rate Blood Pressure O2 Sat by Pulse 93 90 98 Oximetry 09/20/16 09/20/16 09/20/16 01:46 01:47 01:51 Temperature Pulse Rate 68 69 65 Respiratory Rate Blood Pressure 178/85 O2 Sat by Pulse 99 100 Oximetry 09/20/16 09/20/16 09/20/16 01:56 02:01 02:05 Temperature Pulse Rate 72 70 65 Respiratory Rate Blood Pressure 177/87 O2 Sat by Pulse 99 99 Oximetry 09/20/16 09/20/16 09/20/16 02:06 02:11 02:15 Temperature Pulse Rate 67 74 76 Respiratory Rate Blood Pressure 171/80 O2 Sat by Pulse 99 99 Oximetry 09/20/16 09/20/16 09/20/16 02:16 02:21 02:26 Temperature Pulse Rate 68 72 85 Respiratory Rate Blood Pressure O2 Sat by Pulse 100 99 99 Oximetry 09/20/16 09/20/16 09/20/16 02:29 02:31 02:34 Temperature Pulse Rate 70 77 73 Respiratory 18 Rate Blood Pressure 153/70 153/70 146/63 O2 Sat by Pulse 99 Oximetry 09/20/16 09/20/16 09/20/16 02:36 02:37 02:39 Temperature Pulse Rate 77 76 75 Respiratory 18 Rate Blood Pressure 146/63 138/65 O2 Sat by Pulse 99 Oximetry 09/20/16 09/20/16 09/20/16 02:41 02:44 02:45 Temperature Pulse Rate 73 72 74 Respiratory 18 18 Rate Blood Pressure 138/65 139/65 139/65 O2 Sat by Pulse 99 99 Oximetry 09/20/16 09/20/16 09/20/16 02:46 02:51 02:56 Temperature Pulse Rate 75 77 77 Respiratory Rate Blood Pressure O2 Sat by Pulse 99 99 99 Oximetry 09/20/16 09/20/16 09/20/16 03:00 03:01 03:07 Temperature Pulse Rate 69 84 76 Respiratory 18 Rate Blood Pressure 164/80 O2 Sat by Pulse 99 77 L Oximetry 09/20/16 09/20/16 09/20/16 03:09 03:14 03:15 Temperature Pulse Rate 90 73 75 Respiratory 18 Rate Blood Pressure 164/72 O2 Sat by Pulse 97 98 Oximetry 09/20/16 09/20/16 09/20/16 03:16 03:19 03:24 Temperature Pulse Rate 69 88 75 Respiratory Rate Blood Pressure 164/80 O2 Sat by Pulse 97 99 Oximetry 09/20/16 09/20/16 09/20/16 03:29 03:30 03:31 Temperature Pulse Rate 75 72 75 Respiratory 18 Rate Blood Pressure 154/74 164/72 O2 Sat by Pulse 99 Oximetry 08/03/0809/20/16 09/20/16 03:34 03:39 03:44 Temperature Pulse Rate 76 75 72 Respiratory Rate Blood Pressure O2 Sat by Pulse 98 99 99 Oximetry 09/20/16 09/20/16 09/20/16 03:46 03:49 03:54 Temperature Pulse Rate 72 72 72 Respiratory Rate Blood Pressure 154/74 O2 Sat by Pulse 98 98 Oximetry 09/20/16 09/20/16 09/20/16 03:59 04:00 04:01 Temperature Pulse Rate 68 74 74 Respiratory 18 Rate Blood Pressure 156/86 156/86 O2 Sat by Pulse 99 Oximetry 09/20/16 09/20/16 09/20/16 04:04 04:09 04:14 Temperature Pulse Rate 67 71 71 Respiratory Rate Blood Pressure O2 Sat by Pulse 99 98 98 Oximetry 09/20/16 09/20/16 09/20/16 04:19 04:24 04:26 Temperature Pulse Rate 74 68 80 Respiratory Rate Blood Pressure 162/79 O2 Sat by Pulse 98 98 Oximetry 09/20/16 09/20/16 09/20/16 04:29 04:32 04:34 Temperature Pulse Rate 72 82 80 Respiratory Rate Blood Pressure O2 Sat by Pulse 99 93 98 Oximetry 09/20/16 09/20/16 09/20/16 04:39 04:40 04:44 Temperature Pulse Rate 71 91 H 83 Respiratory Rate Blood Pressure 155/79 O2 Sat by Pulse 94 99 Oximetry 09/20/16 09/20/16 09/20/16 04:49 04:51 04:53 Temperature Pulse Rate 78 76 76 Respiratory 18 Rate Blood Pressure 136/65 136/65 O2 Sat by Pulse 99 Oximetry 09/20/16 09/20/16 09/20/16 04:54 04:55 04:59 Temperature Pulse Rate 80 73 73 Respiratory Rate Blood Pressure 143/66 O2 Sat by Pulse 99 99 Oximetry 09/20/16 09/20/16 09/20/16 05:04 05:09 05:10 Temperature Pulse Rate 76 80 78 Respiratory Rate Blood Pressure 144/68 O2 Sat by Pulse 99 97 Oximetry 09/20/16 09/20/16 09/20/16 05:14 05:19 05:24 Temperature Pulse Rate 75 80 70 Respiratory Rate Blood Pressure O2 Sat by Pulse 97 97 100 Oximetry 09/20/16 09/20/16 09/20/16 05:25 05:28 05:29 Temperature Pulse Rate 68 97 H 79 Respiratory Rate Blood Pressure 145/70 O2 Sat by Pulse 90 99 Oximetry 09/20/16 09/20/16 09/20/16 05:33 05:34 05:50 Temperature Pulse Rate 77 77 89 Respiratory Rate Blood Pressure O2 Sat by Pulse 93 99 98 Oximetry 09/20/16 09/20/16 09/20/16 05:55 05:56 06:00 Temperature Pulse Rate 71 71 70 Respiratory Rate Blood Pressure 156/72 O2 Sat by Pulse 99 99 Oximetry 09/20/16 09/20/16 09/20/16 06:05 06:10 06:15 Temperature Pulse Rate 73 71 71 Respiratory Rate Blood Pressure 165/79 O2 Sat by Pulse 99 99 99 Oximetry 09/20/16 09/20/16 09/20/16 06:20 06:25 06:27 Temperature Pulse Rate 76 82 75 Respiratory Rate Blood Pressure 161/88 161/88 O2 Sat by Pulse 99 80 L Oximetry 09/20/16 09/20/16 09/20/16 06:28 06:33 06:38 Temperature Pulse Rate 91 H 71 76 Respiratory Rate Blood Pressure O2 Sat by Pulse 100 99 94 Oximetry 09/20/16 09/20/16 09/20/16 06:39 06:40 06:43 Temperature Pulse Rate 58 L 85 69 Respiratory Rate Blood Pressure 167/93 O2 Sat by Pulse 93 98 Oximetry 09/20/16 09/20/16 09/20/16 06:48 06:53 06:55 Temperature Pulse Rate 73 87 72 Respiratory Rate Blood Pressure 164/85 O2 Sat by Pulse 98 97 Oximetry 09/20/16 09/20/16 09/20/16 06:58 07:03 07:08 Temperature Pulse Rate 80 73 76 Respiratory Rate Blood Pressure O2 Sat by Pulse 99 99 98 Oximetry 09/20/16 09/20/16 09/20/16 07:10 07:13 07:18 Temperature Pulse Rate 79 75 89 Respiratory Rate Blood Pressure 171/85 O2 Sat by Pulse 98 98 Oximetry 09/20/16 09/20/16 09/20/16 07:23 07:25 07:28 Temperature Pulse Rate 76 75 77 Respiratory Rate Blood Pressure 161/75 O2 Sat by Pulse 98 98 Oximetry 09/20/16 09/20/16 09/20/16 07:33 07:38 07:40 Temperature Pulse Rate 63 65 70 Respiratory Rate Blood Pressure 153/69 O2 Sat by Pulse 98 98 Oximetry 09/20/16 09/20/16 09/20/16 07:43 07:48 07:53 Temperature Pulse Rate 74 65 68 Respiratory Rate Blood Pressure O2 Sat by Pulse 98 98 98 Oximetry 09/20/16 09/20/16 09/20/16 07:55 07:58 08:03 Temperature Pulse Rate 67 64 68 Respiratory Rate Blood Pressure 153/73 O2 Sat by Pulse 98 97 Oximetry 09/20/16 09/20/16 09/20/16 08:08 08:11 08:13 Temperature Pulse Rate 66 70 70 Respiratory Rate Blood Pressure 178/86 O2 Sat by Pulse 98 98 Oximetry 09/20/16 09/20/16 09/20/16 08:18 08:23 08:25 Temperature Pulse Rate 68 68 76 Respiratory Rate Blood Pressure 175/85 O2 Sat by Pulse 98 98 Oximetry 09/20/16 09/20/16 09/20/16 08:28 08:31 08:33 Temperature 97.6 F Pulse Rate 71 79 72 Respiratory 18 Rate Blood Pressure 165/82 165/82 O2 Sat by Pulse 98 100 Oximetry 09/20/16 09/20/16 09/20/16 08:46 08:51 08:55 Temperature Pulse Rate 71 73 80 Respiratory Rate Blood Pressure 175/82 O2 Sat by Pulse 99 99 Oximetry 09/20/16 09/20/16 09/20/16 08:56 09:01 09:06 Temperature Pulse Rate 88 77 85 Respiratory Rate Blood Pressure O2 Sat by Pulse 99 99 100 Oximetry 09/20/16 09/20/16 09/20/16 09:10 09:11 09:16 Temperature Pulse Rate 68 73 82 Respiratory Rate Blood Pressure 162/75 O2 Sat by Pulse 99 98 Oximetry 09/20/16 09/20/16 09/20/16 09:21 09:25 09:26 Temperature Pulse Rate 81 85 83 Respiratory Rate Blood Pressure 142/75 O2 Sat by Pulse 98 98 Oximetry 09/20/16 09/20/16 09/20/16 09:31 09:36 09:41 Temperature Pulse Rate 84 79 87 Respiratory Rate Blood Pressure O2 Sat by Pulse 99 99 99 Oximetry 09/20/16 09/20/16 09/20/16 09:46 09:51 09:55 Temperature Pulse Rate 83 82 81 Respiratory Rate Blood Pressure 162/80 O2 Sat by Pulse 98 99 Oximetry 09/20/16 09/20/16 09/20/16 09:56 10:01 10:04 Temperature Pulse Rate 79 80 81 Respiratory Rate Blood Pressure 147/70 O2 Sat by Pulse 99 99 Oximetry 09/20/16 09/20/16 09/20/16 10:06 10:10 10:11 Temperature Pulse Rate 81 81 89 Respiratory Rate Blood Pressure 149/72 O2 Sat by Pulse 99 100 Oximetry 09/20/16 09/20/16 09/20/16 10:16 10:21 10:25 Temperature Pulse Rate 82 80 81 Respiratory Rate Blood Pressure 151/74 O2 Sat by Pulse 99 98 Oximetry 09/20/16 09/20/16 09/20/16 10:26 10:31 10:36 Temperature Pulse Rate 81 77 79 Respiratory Rate Blood Pressure O2 Sat by Pulse 99 99 98 Oximetry 09/20/16 09/20/16 09/20/16 10:40 10:41 10:46 Temperature Pulse Rate 85 79 77 Respiratory Rate Blood Pressure 151/75 O2 Sat by Pulse 98 98 Oximetry 09/20/16 09/20/16 09/20/16 10:51 10:55 10:56 Temperature Pulse Rate 77 79 82 Respiratory Rate Blood Pressure 159/76 O2 Sat by Pulse 99 99 Oximetry 09/20/16 09/20/16 09/20/16 11:01 11:06 11:10 Temperature Pulse Rate 75 83 75 Respiratory Rate Blood Pressure 157/71 O2 Sat by Pulse 99 100 Oximetry 09/20/16 09/20/16 09/20/16 11:11 11:16 11:21 Temperature Pulse Rate 77 76 74 Respiratory Rate Blood Pressure O2 Sat by Pulse 99 93 97 Oximetry 09/20/16 09/20/16 09/20/16 11:22 11:25 11:29 Temperature Pulse Rate 86 83 Respiratory Rate Blood Pressure 159/77 O2 Sat by Pulse 94 84 Oximetry 09/20/16 09/20/16 09/20/16 11:31 11:36 11:40 Temperature Pulse Rate 84 67 75 Respiratory Rate Blood Pressure 156/75 O2 Sat by Pulse 99 99 Oximetry 09/20/16 09/20/16 09/20/16 11:41 11:46 11:51 Temperature Pulse Rate 76 78 76 Respiratory Rate Blood Pressure O2 Sat by Pulse 98 98 98 Oximetry 09/20/16 09/20/16 09/20/16 11:55 12:09 12:10 Temperature Pulse Rate 85 87 77 Respiratory Rate Blood Pressure 163/82 173/84 O2 Sat by Pulse 99 Oximetry 09/20/16 09/20/16 12:14 12:18 Temperature 97.5 F L Pulse Rate 74 76 Respiratory 18 Rate Blood Pressure 172/87 172/87 O2 Sat by Pulse 98 98 Oximetry - Labs Labs: Abnormal Labs 09/16/16 09/16/16 09/16/16 14:40 14:40 15:34 WBC 11.6 H MCHC 35 H [place] % (Auto) [place] # Seg Neutrophils # Sodium Creatinine 0.6 L Glucose Calcium Magnesium Lactate Dehydrogenase 195 H Total Protein Albumin Ur Total Protein 24 Hr 966.00 H Urine Total Protein 46 H 09/17/16 09/17/16 09/17/16 00:00 05:30 12:11 WBC MCHC [place] % (Auto) [place] # Seg Neutrophils # Sodium Creatinine Glucose Calcium Magnesium 3.30 H 3.40 H 3.50 H Lactate Dehydrogenase Total Protein Albumin Ur Total Protein 24 Hr Urine Total Protein 09/17/16 09/19/16 09/19/16 18:02 11:07 11:07 WBC 15.3 H MCHC [place] % (Auto) 11.1 H [place] # 1.7 H Seg Neutrophils # 10.1 H Sodium 136 L Creatinine 0.5 L Glucose 108 H Calcium 8.2 L Magnesium 3.60 H Lactate Dehydrogenase 193 H Total Protein 5.9 L Albumin 2.8 L Ur Total Protein 24 Hr Urine Total Protein Laboratory Results - last 24 hr 09/19/16 09/19/16 11:07 11:07 WBC 15.3 H RBC 3.92 Hgb 11.7 Hct 34.6 MCV 88 MCH 30 MCHC 34 RDW 14.6 Plt Count 239 Lymph % (Auto) 22.5 [place] % (Auto) 11.1 H Eos % (Auto) 0.1 Baso % (Auto) 0.2 Lymph # 3.4 [place] # 1.7 H Eos # 0.0 Baso # 0.0 Seg Neutrophils % 66.1 Seg Neutrophils # 10.1 H Sodium 136 L Potassium 3.8 Chloride 100.7 Carbon Dioxide 23 Anion Gap 16 BUN 7 Creatinine 0.5 L Estimated GFR > 60 BUN/Creatinine Ratio 14.00 Glucose 108 H Uric Acid 4.1 Calcium 8.2 L Total Bilirubin 0.30 AST 18 ALT 16 Alkaline Phosphatase 75 Lactate Dehydrogenase 193 H Total Protein 5.9 L Albumin 2.8 L Albumin/Globulin Ratio 0.9
[2016-09-20] MEDS: ALDOMET PO SCH ×2 (12:34→22:05)
--- NOTE | 2016-09-20 14:14 | Consultation ---
History of Present Illness Consult date: 09/20/16 Requesting physician: KATRINA FONG History of present illness: Now 24 5/7 weeks Followed for Preeclampsia BP's still labile, Received IV Hydalazine earlier today for BP or 172/87 BP's - most recent 154/87, 158/76 Aldmomet 500 BID added by OB (now on Aldomet 500 BID and Labetalol 200 BID) Denies SARAVIA's Scot[place] or RUQ Pain Swelling has decreased DTR's / no clonus, no RUQ Pain [facility] US EFW at 656 grams 20% Labs repeated 09/19/16 AST/ALT at Plts at 239 H/H at 11. Uric Acid at 4.1 24 Hour Prot at 966 Past History Past Medical History: no pertinent history, other (obesity) Past Surgical History: no surgical history Family/Genetic History: diabetes - Obstetrical History : 2 Medications and Allergies Allergies Allergy/AdvReac Type Severity Reaction Status Date / Time No Known Allergies Allergy Unverified 09/16/16 14:50 Active Meds: Active Medications Acetaminophen (Tylenol) 650 mg PO Q4H PRN PRN Reason: Pain MILD(1-3)/Fever >100.5/SARAVIA Betamethasone Acet/Betameth SodPhos (Celestone Soluspan) 12 mg IM Q24HR GERMAINE Last Admin: 09/16/16 18:07 Dose: 12 mg Docusate Sodium (Colace) 100 mg PO Q12H PRN PRN Reason: Constipation Hydralazine HCl (Apresoline) 5 mg IV Q30MIN PRN PRN Reason: HTN SYS>170 &/OR DAYANA BP>110 Last Admin: 09/20/16 12:27 Dose: 5 mg Lactated Ringer's (Lactated Ringers) 1,000 mls @ 125 mls/hr IV DIRECT GERMAINE Last Admin: 09/20/16 12:16 Dose: 125 mls/hr Labetalol HCl (Normodyne) 200 mg PO Q8HR GERMAINE Last Admin: 09/20/16 13:46 Dose: 200 mg Methyldopa (Aldomet) 500 mg PO Q12HR GERMAINE Last Admin: 09/20/16 12:34 Dose: 500 mg Multivitamins/Iron/Calcium ( Vitamin) 1 each PO QDAY [facility] Last Admin: 09/20/16 09:20 Dose: 1 each - Vital Signs Vital signs: Vital Signs Pulse Pulse Ox 82 98 09/16/16 14:29 09/16/16 14:29 Temp Pulse Resp BP Pulse Ox 97.5 F L 83 20 157/70 99 09/20/16 12:18 09/20/16 14:04 09/20/16 13:42 09/20/16 14:02 09/20/16 14:04 Results Result Diagrams: 09/19/16 11:07 09/19/16 11:07 All other labs normal. Assessment and Plan Impression: 1. [place] IUP at 24 5/7 weeks 2. Preeclampsia 3. HSV per OB Note 4. S/P Steroids for FLM 5. S/P Mg for neuroprophylaxis 6. S/P NICU Consult 7. Increased LDH 8. Protein, 24 hr urine -996 9. Moderate BP control under Labetalol 200 mg PO TID - Aldomet 500 BID Added 10. Obesity Recommendations: 1. Remain in patient management 2. Repeat PIH labs today CBC, CMP, LDH and Uric Acid twice weekly 5. Continue Labetalol 200 mg PO TID and Aldomet 500 mg BID 6. Delivery for S/S of Preeclampsia with Severe Features on Compromise 7. IV hydralazine for BP's Sys > 160 or Diast > 110 8. Seq Leg Compressors 9. US for EFW ordered 10. If still in patient BPP and Cord dopplers starting at 26 weeks (twice per week) if still in hosp
[2016-09-20 22:11] LABS: Basophils % (Auto) 0.3 % (0.0-1.8); Eosinophils % (Auto) 0.4 % (0.0-4.3); Hematocrit 34.3 % (30.3-42.9); Hemoglobin 11.8 gm/dl (10.1-14.3); Mean Corpuscular HGB Conc 35 % (30-34); Mean Corpuscular Hemoglobin 30 pg (28-32); Mean Corpuscular Volume 87 fl (79-97); Platelet Count 230 K/mm3 (140-440); Red Blood Count 3.94 M/mm3 (3.65-5.03); Red Cell Distribution Width 14.2 % (13.2-15.2); White Blood Count 14.2 K/mm3 (4.5-11.0)
[2016-09-20 22:29] LABS: Alanine Aminotransferase 18 units/L (7-56); Alkaline Phosphatase 82 units/L (35-129); Anion Gap 18 mmol/L; Blood Urea Nitrogen 9 mg/dL (7-17); Calcium 8.6 mg/dL (8.4-10.2); Carbon Dioxide 23 mmol/L (22-30); Chloride 99.5 mmol/L (98-107); Glucose 84 mg/dL (65-100); Potassium 3.9 mmol/L (3.6-5.0); Sodium 137 mmol/L (137-145); Total Protein 6.1 g/dL (6.3-8.2)
[2016-09-21] MEDS: APRESOLINE IV PRN ×2 (02:04→07:02)
[2016-09-21] MEDS: TYLENOL PO PRN ×2 (03:13→06:59)
[2016-09-21] MEDS: LACTATED RINGERS 1,000 ML IV SCH (04:36)
[2016-09-21] MEDS: NORMODYNE PO SCH (05:46)
[2016-09-21] MEDS ORDERED: NORMODYNE IV ONE ×3 (08:54→09:30)
--- NOTE | 2016-09-21 08:55 | Event Note ---
Date: 09/21/16 Called by pt's RN that the patient has a new onset headache since early this morning and blood pressures 180-200s/74521x this morning despite multiple doses of IV antihypertensives and her oral regimen of Labetalol 200 mg TID and Aldomet 500 mg BID. She has brisk patellar reflexes as well. Plan to proceed with delivery for preeclampsia with severe features at 24 weeks.
[2016-09-21] MEDS ORDERED: ANCEF/STERILE WATER 2 GM/20 ML 2 GM/20 ML SYRINGE IV NR (09:00)
[2016-09-21] MEDS ORDERED: LACTATED RINGERS 1,000 ML IV SCH (09:00)
[2016-09-21] MEDS ORDERED: PITOCin/NS 20 UNIT/1000ML DRIP 20 UNITS/1,000 ML BAG IV SCH ×2 (09:00→14:07)
--- NOTE | 2016-09-21 09:18 | Anesthesia Consultation ---
Anesthesia Consult and Med Hx Date of service: 09/21/16 - Airway Anesthetic Teeth Evaluation: Good ROM Head & Neck: Adequate Mental/Hyoid Distance: Adequate Mallampati Class: Class III Intubation Access Assessment: Possibly Difficult - Pre-Operative Health Status ASA Pre-Surgery Classification: ASA3 Proposed Anesthetic Plan: Epidural, Spinal - Pulmonary Hx Asthma: No COPD: No Hx Pneumonia: No - Cardiovascular System Hx Hypertension: Yes (PRESENTLY, severe PIH) - Central Nervous System Hx Seizures: No Hx Psychiatric Problems: No - Endocrine Hx Renal Disease: No Hx End Stage Renal Disease: No Hx Hypothyroidism: No Hx Hyperthyroidism: No - Hematic Hx Anemia: Yes (DOES NOT TAKE HER IRON) Hx Sickle Cell Disease: No - Other Systems Hx Alcohol Use: No Hx Obesity: Yes
--- NOTE | 2016-09-21 09:19 | Anesthesia Day of Surgery ---
Anesthesia Day of Surgery - Day of Surgery Patient Examined: Yes Patient H&P Reviewed: Yes Patient is NPO: Yes
[2016-09-21] MEDS ORDERED: MORPHINE ONE (09:23)
[2016-09-21] MEDS ORDERED: BENADRYL IV PRN ×2 (09:30→09:54)
[2016-09-21] MEDS ORDERED: PEPCID IV NR (09:30)
[2016-09-21] MEDS ORDERED: REGLAN IV NR (09:30)
[2016-09-21] MEDS ORDERED: BICITRA PO NR (09:30)
[2016-09-21] MEDS ORDERED: TORADOL IV PRN ×2 (09:30→14:07)
[2016-09-21] MEDS ORDERED: ZOFRAN IV PRN (09:30)
[2016-09-21] MEDS ORDERED: NARCAN 0.4 MG/1 ML IV PRN ×2 (09:30→14:07)
[2016-09-21] MEDS ORDERED: DILAUDID IV PRN (09:30)
[2016-09-21] MEDS ORDERED: SODIUM CHLORIDE FLUSH SYRINGE 10 ML IV PRN (10:00)
[2016-09-21] MEDS ORDERED: XYLOCAINE MPF 2% ONE ×2 (10:27)
[2016-09-21] MEDS ORDERED: MORPHINE IV PRN ×3 (10:30→14:07)
[2016-09-21] MEDS ORDERED: ZOFRAN ONE (11:14)
[2016-09-21] MEDS ORDERED: MAGNESIUM SULFATE 4GM/100ML 4 GM/100 ML BAG IV ONE (11:49)
--- NOTE | 2016-09-21 11:54 | Procedure Note ---
OB Delivery Note - Delivery Date of Delivery: 09/21/16 Surgeon: KATRINA FONG Estimated blood loss: other (700 mL) - Section Preop diagnosis: breech, other (Severe Preeclampsia ) Postop diagnosis: same section procedure: section, primary low transverse Disposition: PACU Narrative: Please see operative note. - Infant A at 1 minute: 7 at 5 minutes: 8 Infant Gender: Female (577g (1lb 4 oz))
--- NOTE | 2016-09-21 11:54 | Operative Report ---
Operative Report Operative Report: Date of procedure: September 21, 2016 Preoperative diagnosis: 1) IUP at 24w6d 2) Severe Preeclampsia 3) Malpresentation 4) Obesity Postoperative diagnosis: Same Procedure: Primary Low Transverse Sections Surgeon: Jasmyn Barnett M.D. Anesthesia: Spinal-Epidural Findings: 1) Viable female , Apgars 7 and 8, weight 577g, (1 lb 4 oz) in double footling breech presentation 2) Normal-appearing uterus ovaries and tubes Estimated blood loss: 700 mL IV fluids: 1200 mL Urine output: 300 mL, clear at the end of the procedure Drains: Renee to gravity Specimens: Placenta to pathology Complications: None. Counts correct x 3 Disposition: Stable to PACU Indication for procedure: Pt is a 30 year old [place] female at 24w6d was initially admitted for preeclampsia five days prior. Today, the patient developed new onset headache and blood pressures not controlled by multiple doses of IV medication suggesting progression of her preeclampsia. The decision was made to proceed with primary section. Operation in detail: After the risks, benefits, alternatives and complications were explained to the patient she gave informed consent for the procedure. She was subsequently taken to the operating room where spinal-epidural anesthesia was noted to be adequate with much difficulty and multiple attempts. She was subsequently placed in the dorsal supine position with leftward tilt and prepped and draped in a normal sterile fashion. heart tones were noted to be in the 145s prior to incision. A timeout was performed. A Pfannenstiel skin incision was made with the knife and carried down to the layer of the fascia with the Bovie. The fascia was incised in the midline and the fascial incision was extended bilaterally with the Bovie. Attention was then turned to the superior aspect of the incision which was grasped with two Kochers, tented up, and dissected off the rectus muscles. Attention was then turned to the inferior aspect of the incision which was grasped with two Kochers , tented up and dissected off the rectus muscles. The rectus muscles were then in the midline. The peritoneum was then entered bluntly. The peritoneal incision was extended with good visualization of the bladder. The peritoneal incision was then stretched. An Ata self-retaining retractor was placed for visualization. The bladder blade was placed. A transverse incision was made in the lower uterine segment with a knife and extended bilaterally with the bandage scissors. The buttocks and legs were delivered followed by the remainder of the body without difficulty. was bulb suctioned at delivery. The cord was clamped and cut and the was handed to NICU staff in attendance. Cord blood was collected. The placenta was then delivered manually and sent to pathology. The uterus was then cleared of all clots and debris. The hysterotomy was then reapproximated with 0 Vicryl in a running locked fashion. A second layer of the same suture was used in imbricating fashion. The hysterotomy was inspected and hemostasis was noted. The Ata self-retaining retractor was removed. The gutters were irrigated and cleared of all clots and debris. Additional [id number] of 2-0 Vicryl were used to obtain hemostasis. The hysterotomy was again inspected and noted to be hemostatic. Surgicel was placed over the hysterotomy. The peritoneum was reapproximated with 2-0 Vicryl in a running fashion. The fascia was reapproximated with 0 Vicryl in a running fashion. The subcutaneous tissue was reapproximated with 3-0 Vicryl in a running fashion. The skin was reapproximated with 4-0 1Vicryl in a subcuticular fashion. The incision was then covered with steri strips and a pressure dressing. The procedure was then ended. The patient tolerated the procedure well and was taken to the PACU in stable condition. All instrument, lap, and needle counts were correct 3.
[2016-09-21] MEDS ORDERED: MAGNESIUM SULFATE 40GM/1000ML 40 GM/1,000 ML BAG IV SCH (12:00)
--- NOTE | 2016-09-21 12:51 | Post Anesthesia Evaluation ---
- Post Anesthesia Evaluation Patient Participated: Yes Airway Patent: Yes Stable Respiratory Function: Yes Nausea/Vomiting: No Temp > 96.8F: Yes Pain Manageable: Yes Adequeate Hydration: Yes Anesthesia Complications: No Block Receding Appropriately: Not Applicable Patient on Ventilator: No
[2016-09-21] MEDS ORDERED: MOTRIN PO PRN (14:07)
[2016-09-21] MEDS ORDERED: LANSINOH TP PRN (14:07)
[2016-09-21] MEDS ORDERED: TUCKS PAD TP PRN (14:07)
[2016-09-21] MEDS ORDERED: MYLICON PO PRN (14:07)
[2016-09-21] MEDS ORDERED: SODIUM CHLORIDE FLUSH SYRINGE 10 ML IV NR (14:07)
[2016-09-21 15:03] LABS: Hematocrit 35.1 % (30.3-42.9); Hemoglobin 11.9 gm/dl (10.1-14.3); Mean Corpuscular HGB Conc 34 % (30-34); Mean Corpuscular Hemoglobin 30 pg (28-32); Mean Corpuscular Volume 88 fl (79-97); Platelet Count 237 K/mm3 (140-440); Red Blood Count 4.01 M/mm3 (3.65-5.03); Red Cell Distribution Width 14.3 % (13.2-15.2); White Blood Count 18.1 K/mm3 (4.5-11.0)
[2016-09-21 15:10] LABS: Alanine Aminotransferase 18 units/L (7-56)
[2016-09-21 16:42] LABS: Lactate Dehydrogenase 226 units/L (91-180); Uric Acid 5.3 mg/dL (3.5-7.6)
[2016-09-21] MEDS: ANCEF/NS 1 GM/50 ML 1 GM/50 ML BAG IV SCH (18:59)
[2016-09-22] MEDS: ANCEF/NS 1 GM/50 ML 1 GM/50 ML BAG IV SCH (02:37)
[2016-09-22] MEDS: PERCOCET 5/325 PO PRN ×3 (04:12→22:20)
[2016-09-22 04:59] LABS: Hematocrit 32.7 % (30.3-42.9); Hemoglobin 11.2 gm/dl (10.1-14.3)
[2016-09-22] MEDS ORDERED: M-M-R II VACCINE SUB-Q ONE (06:00)
[2016-09-22] MEDS ORDERED: BOOSTRIX IM ONE (06:00)
[2016-09-22] MEDS ORDERED: LACTATED RINGERS 1,000 ML IV SCH (07:00)
[2016-09-22 07:23] LABS: Hematocrit 31.8 % (30.3-42.9); Hemoglobin 10.9 gm/dl (10.1-14.3)
[2016-09-22] MEDS ORDERED: MILK OF MAGNESIA PO PRN (08:00)
--- NOTE | 2016-09-22 08:56 | Progress Note ---
Assessment and Plan O: BP: 150-160/80 PP H/H: 10.7/31.9 A: Stable POD #1 S/P 24 week delivery severe preeclampsia, malpresentation-breech Anemia P: continue PP order MD consult Labetalol added Abdominal binder Subjective - Subjective Date of service: 09/22/16 Principal diagnosis: Chronic hypertension Patient reports: appetite normal (Tolerating CL, without N/V), voiding normally (Renee present and patent. Draining ), pain well controlled, ambulating normally (Sitting up in bed), other (Denies headache, scotoma, blurred vision or epigastric pain), no flatus [place]: doing well, in NICU Objective - Vital Signs Latest vital signs: Vital Signs Temp Pulse Resp BP Pulse Ox 09/22/16 08:03 98.2 F 79 16 158/83 09/22/16 06:00 97.9 F 83 20 140/73 09/22/16 04:12 18 09/22/16 03:50 99.0 F 89 20 150/79 09/22/16 02:10 86 20 152/83 09/22/16 00:20 98.4 F 84 20 152/88 09/21/16 22:25 82 18 158/80 09/21/16 21:52 18 09/21/16 20:30 99.8 F H 82 18 161/74 09/21/16 16:20 98.4 F 82 19 155/72 09/21/16 13:45 98.2 F 74 20 169/89 09/21/16 12:46 75 15 155/84 96 09/21/16 12:45 79 14 155/84 96 09/21/16 12:44 76 16 168/87 96 09/21/16 12:42 74 19 168/87 97 09/21/16 12:40 76 15 168/87 96 09/21/16 12:38 75 13 161/90 96 09/21/16 12:36 77 17 161/90 96 09/21/16 12:35 74 14 161/90 96 09/21/16 12:34 73 13 169/91 96 09/21/16 12:32 76 11 L 169/91 96 09/21/16 12:30 75 13 169/91 96 09/21/16 12:28 74 10 L 174/94 96 09/21/16 12:26 76 10 L 174/94 96 09/21/16 12:25 74 15 174/94 96 09/21/16 12:24 76 21 172/99 97 09/21/16 12:22 75 15 172/99 98 09/21/16 12:20 79 10 L 172/99 97 09/21/16 12:18 74 15 171/95 98 09/21/16 12:16 75 13 171/95 98 09/21/16 12:15 75 14 171/95 98 09/21/16 12:14 75 14 168/79 98 09/21/16 12:12 75 12 168/79 98 09/21/16 12:10 76 16 168/79 99 09/21/16 12:08 76 15 174/81 100 09/21/16 12:06 76 14 174/81 99 09/21/16 12:04 81 12 160/100 99 09/21/16 12:02 78 19 160/100 99 09/21/16 12:01 81 15 160/100 100 09/21/16 12:00 76 15 160/100 100 09/21/16 11:58 74 16 137/73 100 09/21/16 11:56 79 15 137/73 99 09/21/16 11:54 75 13 146/123 100 09/21/16 11:52 78 14 146/123 100 09/21/16 11:51 78 13 146/123 99 09/21/16 11:50 80 15 154/94 100 09/21/16 11:48 81 14 154/94 100 09/21/16 11:47 98.2 F 16 09/21/16 11:46 79 15 154/94 100 09/21/16 11:45 76 11 L 154/94 100 09/21/16 11:44 80 16 99 09/21/16 11:43 84 100 09/21/16 09:12 88 169/87 09/21/16 09:07 87 175/90 09/21/16 09:02 82 192/100 09/21/16 08:57 80 189/89 Intake and Output 09/21/16 09/22/16 09/22/16 22:59 06:59 14:59 Intake Total 170 360 Output Total 1400 2400 Balance -1230 -2040 Intake: IV 50 ANCEF/NS 1 GM/50 ML 1 gm 50 In 50 ml @ 100 mls/hr IV Q8H [facility] Rx#:[id number] Oral 120 360 Output: Urine 1400 2400 Indwelling Catheter 1400 2400 Other: Total, Intake Amount 120 120 Total, Output Amount 1000 600 - Exam Breasts: Present: deferred Lungs: Present: Normal air movement Abdomen: Present: normal appearance, soft, normal bowel sounds. Absent: distention, tenderness Uterus: Present: normal, firm, fundal height below umbilicus. Absent: bogginess , tenderness Extremities: Present: normal, other (SCD present and patent), edema Incision: Present: normal, dry, intact, other (open to air) - Labs Labs: Abnormal lab results 09/21/16 09/21/16 09/21/16 Range/Units 14:25 14:25 18:14 WBC 18.1 H (4.5-11.0) K/mm3 Creatinine 0.6 L (0.7-1.2) mg/dL Magnesium 4.10 H (1.7-2.3) mg/dL Lactate Dehydrogenase 226 H (91-180) units/L 09/22/16 09/22/16 09/22/16 Range/Units 01:57 04:44 07:09 WBC (4.5-11.0) K/mm3 Creatinine (0.7-1.2) mg/dL Magnesium 4.70 H 5.10 H 4.80 H (1.7-2.3) mg/dL Lactate Dehydrogenase (91-180) units/L
[2016-09-22] MEDS: FEOSOL PO SCH (10:28)
[2016-09-22] MEDS: NORMODYNE PO SCH ×2 (10:28→22:16)
[2016-09-22] MEDS: PRENATAL VITAMIN PO SCH (10:28)
--- NOTE | 2016-09-22 10:47 | Progress Note ---
Subjective Date of service: 09/22/16 Principal diagnosis: Chronic hypertension Interval history: 1st POD after Patient is in the bed, comfortable. Pain is well controlled with pain meds. Has not ambulated yet due to Mg2SO4 infusion. No residual neurological deficit. No pruritus. No anesthesia complications Objective - Constitutional Vitals: Vital Signs - 12hr 09/22/16 09/22/16 09/22/16 00:20 02:10 03:50 Temperature 98.4 F 99.0 F Pulse Rate 84 86 89 Respiratory 20 20 20 Rate Blood Pressure 152/88 152/83 150/79 09/22/16 09/22/16 09/22/16 04:12 06:00 08:03 Temperature 97.9 F 98.2 F Pulse Rate 83 79 Respiratory 18 20 16 Rate Blood Pressure 140/73 158/83 09/22/16 10:28 Temperature Pulse Rate 84 Respiratory Rate Blood Pressure 155/83 - Labs CBC & Chem 7: 09/22/16 07:09 09/21/16 14:25 Labs: Abnormal lab results 09/21/16 09/21/16 09/21/16 Range/Units 14:25 14:25 18:14 WBC 18.1 H (4.5-11.0) K/mm3 Creatinine 0.6 L (0.7-1.2) mg/dL Magnesium 4.10 H (1.7-2.3) mg/dL Lactate Dehydrogenase 226 H (91-180) units/L 09/22/16 09/22/16 09/22/16 Range/Units 01:57 04:44 07:09 WBC (4.5-11.0) K/mm3 Creatinine (0.7-1.2) mg/dL Magnesium 4.70 H 5.10 H 4.80 H (1.7-2.3) mg/dL Lactate Dehydrogenase (91-180) units/L
[2016-09-23] MEDS: FEOSOL PO SCH (09:40)
[2016-09-23] MEDS: PRENATAL VITAMIN PO SCH (09:40)
[2016-09-23] MEDS: NORMODYNE PO SCH ×3 (10:00→19:56)
--- NOTE | 2016-09-23 13:09 | Progress Note ---
Assessment and Plan A/P POD# 2 s/p PTD for severe pree s/p mag VSS BP still elevated --labetolol 200 mg bid increased 200 mg tid Denies s/sx of pree ambulating well incision c/d/ i baby in NICu requirng blood transfusion close monitor of BP Breast and bottle feeding continue routine post op orders Subjective - Subjective Date of service: 09/23/16 Principal diagnosis: Chronic hypertension Patient reports: appetite normal, voiding normally, pain well controlled, flatus , ambulating normally [place]: in NICU (requiring blood transfusion currently ) Objective - Vital Signs Latest vital signs: Vital Signs Temp Pulse Resp BP 09/23/16 08:20 98.7 F 82 18 153/81 09/23/16 00:00 98.6 F 69 16 139/77 09/22/16 22:20 18 09/22/16 22:16 82 156/75 09/22/16 16:25 98.7 F 76 18 152/82 Intake and Output 09/22/16 09/23/16 09/23/16 22:59 06:59 14:59 Intake Total 480 550 Balance 480 550 Intake: Oral 480 250 Intake, Free Water 300 Other: Total, Intake Amount 480 250 # Voids Void 1 - Exam Breasts: Present: normal Cardiovascular: Present: Regular rate, Normal S1 Lungs: Present: Clear to auscultation, Normal air movement Abdomen: Present: normal appearance, soft, normal bowel sounds. Absent: distention, tenderness Uterus: Present: normal, firm, fundal height below umbilicus (3cm ). Absent: bogginess, tenderness Extremities: Present: normal Deep Tendon Reflex Grade: Normal +2 Incision: Present: normal, dry, intact
[2016-09-24] MEDS: PERCOCET 5/325 PO PRN ×2 (03:16→16:31)
[2016-09-24] MEDS: NORMODYNE PO SCH ×2 (09:10→16:30)
[2016-09-24] MEDS: FEOSOL PO SCH (09:10)
[2016-09-24] MEDS: PRENATAL VITAMIN PO SCH (09:10)
--- NOTE | 2016-09-24 15:24 | Progress Note ---
Assessment and Plan O: BP 150/70-80 A: Stable POD 3 s/p C/s for severe preeclampsia, malpresentation P: D/c home RTO one week BP and incision check Subjective - Subjective Date of service: 09/24/16 Principal diagnosis: Chronic hypertension Patient reports: appetite normal, voiding normally, pain well controlled, flatus , ambulating normally, other (Denies PIH S&S) : in NICU (patient reports doing well, however RN reports infant not expected to survive, awaiting NICU doctor to talk to patient) Objective - Vital Signs Latest vital signs: Vital Signs Temp Pulse Resp BP 09/24/16 07:35 98.7 F 68 18 186/106 09/24/16 03:16 18 09/24/16 00:37 98.5 F 86 20 155/79 09/23/16 19:56 84 154/80 09/23/16 16:37 99.6 F 84 16 150/70 - Exam Breasts: Present: deferred Abdomen: Present: normal appearance, soft. Absent: distention, tenderness Uterus: Present: normal, firm, fundal height below umbilicus. Absent: bogginess , tenderness Extremities: Present: normal. Absent: edema Incision: Present: normal, dry, intact, other (steri strips intact)
--- NOTE | 2016-09-24 15:26 | Discharge Summary ---
Providers - Providers Date of Admission: 09/19/16 08:50 Date of discharge: 09/24/16 Attending physician: KATRINA FONG 09/17/16 07:00 Consult to Physician [CONS] Routine Consulting Provider: ANA CABRERA Reason For Exam: IUP at 24 wks, gestational hypertension Place consult to:: JOSE E Notified:: yes Phone number called:: [phone] Was contact made?: Yes If yes, spoke with:: STEFF Time called:: 19:48 09/21/16 14:07 Consult to [employer] Apprentice [CONS] Routine Reason For Exam: Primary care physician: KATRINA FONG Hospitalization Reason for admission: IUP - , other (severe preeclampsia, malpresentation ) Delivery: Procedure: section Episiotomy: none Incision: normal, dry, intact complications: none Discharge diagnosis: IUP at term delivered [place] baby: female Condition at discharge: Good Disposition: DC-01 TO HOME OR SELFCARE Plan - Discharge Medications Prescriptions: Ibuprofen [Motrin] 600 mg PO Q8H PRN #30 tablet PRN Reason: Pain Labetalol [Normodyne TAB] 200 mg PO TID #30 tablet oxyCODONE /ACETAMINOPHEN [Percocet 5/325] 1 tab PO Q6HR PRN #30 tablet PRN Reason: Pain - Provider Discharge Summary Activity: routine, no sex for 6 weeks, no heavy lifting 4 weeks, no strenuous exercise Diet: routine Instructions: routine Additional instructions: [] Smoking cessation referral if applicable(refer to patient education folder for contact #) [] Refer to [facility] Booklet Call your doctor immediately for: * Fever > 100.5 * Heavy vaginal bleeding ( >1 pad per hour) * Severe persistent headache * Shortness of breath * Reddened, hot, painful area to leg or breast * Drainage or odor from incision. * Keep incision clean and dry at all times and follow doctor's instructions regarding bathing/showering - Follow up plan Follow up: KATRINA FONG MD [Primary Care Provider] - 7 Days
[2016-09-24 17:37] VITALS: BP 176/86
== END 2016-09-24 17:00 | disposition home or self-care (01) | DRG 765 ==
LOC: TRG 14:07 → LD 17:23 → OBSVTOIN 09-19 08:50 → OB 09-21 13:50
PROVIDERS: ADMIT Obstetrics & Gynecology; ATTEND Obstetrics & Gynecology
PROC: 10D00Z1 Extraction of Products of Conception, Low, Open Approach (ICD-10-PCS; principal; 2016-09-21)
DX: O32.8XX0 Maternal care for other malpresentation of fetus, not applicable or unspecified (principal); O60.12X0 Preterm labor second trimester with preterm delivery second trimester, not applicable or unspecified; O14.14 Severe pre-eclampsia complicating childbirth; O13.4 Gestational [pregnancy-induced] hypertension without significant proteinuria, complicating childbirth; O99.214 Obesity complicating childbirth; E66.9 Obesity, unspecified; O12.04 Gestational edema, complicating childbirth; Z68.36 Body mass index [BMI] 36.0-36.9, adult; Z3A.24 24 weeks gestation of pregnancy; Z83.3 Family history of diabetes mellitus; Z37.0 Single live birth
CPT/HCPCS: 36415; 76815; 76816; 76817; 80053; 81001; 82565; 83615; 83735; 84156; 84450; 84460; 84550; 85014; 85018; 85025; 85027; 86850; 86900; 86901; 88305; 99211; A6250; C1765; G0378; G0463; J0360; J0690; J0702; J1885; J2270; J2405; J2590; J2765; J3475; J7120

== ENCOUNTER 2019-02-05 14:20 | Inpatient (IN) | payer MEDICAID, OTHER ==
[2019-02-05] MEDS ORDERED: DEXTROSE 50% IN WATER (25GM) 50 ML SYRINGE IV ONE ×2 (15:00→18:41)
[2019-02-05] MEDS ORDERED: FAMOTIDINE 20 MG/2 ML INJ IV ONE (17:28)
[2019-02-05] MEDS ORDERED: METOCLOPRAMIDE 10 MG/2 ML INJ IV ONE (17:28)
[2019-02-05] MEDS ORDERED: BICITRA ORAL LIQD 30ML PO ONE (17:28)
--- NOTE | 2019-02-05 17:29 | History and Physical Report ---
History of Present Illness Date of examination: 02/05/19 Chief complaint: hypoglycemia History of present illness: Pt is a 33 year old female HUAN 02/15/19 at 38w4d presents after hypogl ycemic episode witnessed by family member at home this afternoon. Pt reports feeling hot but her reports that she was not responding when he spoke to her so he called an ambulance. Her glucose was noted to be in the 50s at that time. The patient does have a h/o of insulin dependent diabetes on 58 NPH and 36 Reg in the AM , 40 Regular with dinner and 20 NPH QHS. She reports that she took her insulin this morning but only ate a bowl of cereal this morning before she went to sleep prior to her hypoglycemic episode. She reports movement, and denies vaginal bleeding or leakage of fluid. She has had care at [facility] since 15 wks with comanagement by [facility] complicated by chronic hypertension on no antihypertensives, insulin dependent diabetes, h/o severe preeclampsia at 24 wks with subsequent demise within the first week of life, Hemoglobin C trait, Obesity, Polyhydramnios followed by MFM, and prior x 1. She is GBS positive. During evaluation in triage pt was found to have blood pressures 160-180/90s. Baseline blood pressure earlier this week was 130/70s. BPP was 6/8 (-2 for JOSÉ). Past History Past Medical History: hypertension, diabetes, other (obesity, Hemoglobin C trait ) Past Surgical History: section Family/Genetic History: hypertension Social history: no significant social history - Obstetrical History Expected Date of Delivery: 02/15/19 Actual Gestation: 38 Week(s) 4 Day(s) : 3 Para: 2 Hx # Term Pregnancies: 1 Number of Pregnancies: 1 (24 wks, preeclampsia, demise ) Spontaneous Abortions: 0 Induced : 0 Number of Living Children: 1 Medications and Allergies Allergies Allergy/AdvReac Type Severity Reaction Status Date / Time No Known Allergies Allergy Unverified 09/16/16 14:50 Home Medications Medication Instructions Recorded Confirmed Last Taken Type Ibuprofen [Motrin] 600 mg PO Q8H PRN #30 tablet 09/23/16 Unknown Rx RX: labetaloL [Labetalol 200mg TAB] 200 mg PO TID #30 tablet 08/04/17 Unknown Rx oxyCODONE /ACETAMINOPHEN [Percocet 1 tab PO Q6HR PRN #30 tablet 09/23/16 Unknown Rx 5/325] Review of Systems All systems: negative - Vital Signs Vital signs: Vital Signs Pulse Pulse Ox 71 100 02/05/19 14:21 02/05/19 14:21 Temp Pulse Resp BP Pulse Ox 97.9 F 78 183/103 100 02/05/19 14:30 02/05/19 17:23 02/05/19 17:13 02/05/19 17:23 - Physical Exam Breasts: Positive: deferred Abdomen: Positive: soft (obese, gravid ) Uterus: Positive: enlarged (gravid ) Extremities: Positive: edema (trace) - Obstetrical FHR: auscultation normal Uterine Contraction Pattern: Absent Uterine Tone Measurement Phase: Resting Results Result Diagrams: 02/05/19 17:40 02/05/19 19:20 Abnormal lab results 02/05/19 02/05/19 02/05/19 Range/Units 14:45 15:56 16:48 POC Glucose 52 L 64 L 59 L (70-105) All other labs normal. Assessment and Plan A: IUP at 38w4d Insulin Dependent Diabetes with symptomatic hypoglycemia Chronic HTN with superimposed preeclampsia Oligohydramnios Advanced Maternal Age Prior x 1 Obesity Hemoglobin C Trait GBS Positive Undesired Fertility P: Admit to antepartum service Consult Hospitalist to aid with stabilization of blood glucose Prepare for repeat section, bilateral tubal ligation and other indicated procedures
--- NOTE | 2019-02-05 17:36 | Ultrasound Report ---
ULTRASOUND OBSTETRIC LIMITED ULTRASOUND BIOPHYSICAL PROFILE INDICATION / CLINICAL INFORMATION: Maternal syncope, hypoglycemia. COMPARISON: None available. FINDINGS: BREATHING MOVEMENT = 2 GROSS BODY MOVEMENT = 2 TONE = 2 QUALITATIVE AMNIOTIC FLUID VOLUME = 2 TOTAL BIOPHYSICAL SCORE = 8/8 AMNIOTIC FLUID INDEX (cm) = 4.3 PRESENTATION: Cephalic. HEART RATE (beats per minute): 116 ADDITIONAL FINDINGS: None. IMPRESSION: 1. Biophysical Score = 8/8 2. Single live intrauterine with a decreased amniotic fluid index of 4.3 cm. Signer Name: Derek Fink MD Signed: 02/05/2019 5:32 PM Workstation Name: [id number]
[2019-02-05] MEDS ORDERED: OXYTOCIN 20 UNIT/1000ML DRIP 20 UNITS/1,000 ML BAG IV SCH ×2 (18:00→23:45)
[2019-02-05] MEDS ORDERED: LACTATED RINGERS 1,000 ML IV SCH ×2 (18:00→23:45)
[2019-02-05] MEDS ORDERED: ceFAZolin/Water 2 GM/20 ML 2 GM/20 ML SYRINGE IV NR (18:00)
[2019-02-05 18:11] LABS: Hematocrit 42.3 % (30.3-42.9); Hemoglobin 14.7 gm/dl (10.1-14.3); Mean Corpuscular HGB Conc 35 % (30-34); Mean Corpuscular Volume 90 fl (79-97); Platelet Count 241 K/mm3 (140-440); Red Blood Count 4.69 M/mm3 (3.65-5.03); Red Cell Distribution Width 14.3 % (13.2-15.2)
[2019-02-05] MEDS ORDERED: SODIUM CHLORIDE 0.9% 1000 ML 1,000 ML ONE ×2 (18:20)
--- NOTE | 2019-02-05 18:42 | Anesthesia Consultation ---
Anesthesia Consult and Med Hx Date of service: 02/05/19 - Airway Anesthetic Teeth Evaluation: Good ROM Head & Neck: Adequate Mental/Hyoid Distance: Adequate Mallampati Class: Class II Intubation Access Assessment: Good - Pulmonary Exam CTA: Yes - Cardiac Exam Cardiac Exam: RRR - Pre-Operative Health Status ASA Pre-Surgery Classification: ASA2, Emergency Proposed Anesthetic Plan: Spinal - Pulmonary Hx Asthma: No COPD: No Hx Pneumonia: No - Cardiovascular System Hx Hypertension: Yes (Unknown if chronic, PEC suspec.) - Central Nervous System Hx Seizures: No Hx Psychiatric Problems: Yes (Noncompliant with diabetic care) - Endocrine Hx Renal Disease: No Hx End Stage Renal Disease: No Hx Hypothyroidism: No Hx Hyperthyroidism: No - Hematic Hx Anemia: No Hx Sickle Cell Disease: No - Other Systems Hx Alcohol Use: No Hx Obesity: Yes
--- NOTE | 2019-02-05 18:43 | Anesthesia Day of Surgery ---
Anesthesia Day of Surgery - Day of Surgery Patient Examined: Yes Patient H&P Reviewed: Yes Patient is NPO: Yes
[2019-02-05] MEDS ORDERED: PROMETHAZINE 25 MG RECT SUPP PR PRN (18:44)
[2019-02-05] MEDS ORDERED: PROMETHAZINE 25 MG TAB PO PRN (18:44)
[2019-02-05] MEDS ORDERED: HYDROmorphone 1 MG/1 ML INJ IV PRN ×2 (18:44)
[2019-02-05] MEDS ORDERED: ONDANSETRON 4 MG/2 ML INJ IV PRN ×2 (18:44→23:03)
[2019-02-05] MEDS ORDERED: NALOXONE 0.4 MG/1 ML INJ IV PRN ×2 (18:44→23:03)
[2019-02-05 18:45] LABS: Alanine Aminotransferase 14 units/L (7-56); Uric Acid 5.4 mg/dL (3.5-7.6)
[2019-02-05] MEDS ORDERED: SODIUM CHLORIDE 0.9% 1000 ML 1,000 ML IV ONE (19:11)
[2019-02-05] MEDS ORDERED: GLUCAGON (HUMAN RECOMBINANT) 1 MG/ML INJ IM STA (19:34)
--- NOTE | 2019-02-05 19:38 | Event Note ---
Date: 02/05/19 Pt remains hypoglycemic after multiple doses of D5W. Hospitalist consulted for further assistance with management of hypoglycemia. Category II tracing. Once blood glucose stabilized, plan to proceed with delivery.
[2019-02-05] MEDS ORDERED: DEXTROSE 5% IN WATER 1,000 ML IV SCH (20:00)
[2019-02-05 20:05] LABS: Bacteria,Urine 2+ /HPF (Negative); Bilirubin,Urine NEG (Negative); Blood,Urine NEG (Negative); Color,Urine Yellow (Yellow); Mucus,Urine 1+ /HPF; Urobilinogen,Urine < 2.0 mg/dL (<2.0)
[2019-02-05] MEDS ORDERED: D5W/LACTATED RINGERS 1,000 ML IV ONE (20:06)
[2019-02-05] MEDS ORDERED: D10W 500 ML IV SOLN IV ONE (21:00)
[2019-02-05] MEDS ORDERED: ceFAZolin/STERILE WATER 2 GM/20 ML SYRINGE IV ONE (21:15)
[2019-02-05] MEDS ORDERED: ONDANSETRON 4 MG/2 ML INJ ONE (21:25)
[2019-02-05] MEDS ORDERED: DEXMEDETOMIDINE 200 MCG/2 ML VIAL IV ONE (21:25)
[2019-02-05] MEDS ORDERED: PHENYLEPHRINE/NS 1,000 MCG/10 ML SYRINGE (OR USE) IV ONE (21:25)
[2019-02-05] MEDS ORDERED: GLUCAGON (HUMAN RECOMBINANT) 1 MG/ML INJ IV ONE (21:30)
[2019-02-05] MEDS ORDERED: WATER FOR IRRIG STERILE 1,500 ML BOTTLE IR ONE (21:36)
[2019-02-05] MEDS ORDERED: SODIUM CHLORIDE 0.9% IRR 1,500 ML BOTTLE IR ONE (21:36)
[2019-02-05] MEDS ORDERED: KETOROLAC 30 MG/1 ML INJ ONE (22:13)
[2019-02-05] MEDS ORDERED: OXYTOCIN 10 UNIT/1 ML INJ ONE (22:13)
--- NOTE | 2019-02-05 23:02 | Operative Report ---
Operative Report Operative Report: Date of procedure: February 05, 2019 Preoperative diagnosis: 1) IUP at 38w4d 2) Chronic HTN with superimposed preeclampsia 3) Oligohydramnios 4) Insulin-dependent diabetes mellitus 5) Previous x 1 6) Obesity 7) Undesired Fertility 8) Advanced Maternal Age Postoperative diagnosis: Same 8) Fibroid Uterus Procedure: 1) Repeat low transverse section 2) Bilateral tubal ligation via modified Elvaston method Surgeon: Jasmyn Barnett M.D. Anesthesia: Regional Findings: 1) Viable male , Apgars 8 and 9, weight 2910g, (6 lb 6.6 oz) in cephalic presentation 2) Fibroid uterus 3) Normal appearing ovaries and tubes Estimated blood loss: 800 mL Urine output: 100 mL, clear at the end of the procedure Drains: Renee to gravity Specimens: Placenta, tubal segments to pathology Complications: Counts correct x 3 Disposition: Stable to PACU Indication for procedure: Pt is a 33 year old -[place] female at 38w4d with a history chronic hypertension, insulin dependent diabetes, and one prior who presents with sudden elevation in blood pressure, oligohydramnios and hypoglycemic episode. The decision was made to proceed with delivery after glucose stabilization. Operation in detail: After the risks, benefits, alternatives and complications were explained to the patient she gave informed consent for the procedure. She was subsequently taken to the operating room where regional anesthesia was noted to be adequate. She was then placed in the dorsal supine position with leftward tilt and prepped and draped in a normal sterile fashion. heart tones were noted prior to incision. A timeout was performed. A Pfannenstiel skin incision was made with the knife and carried down to the layer of the fascia with the Bovie. The fascia was incised in the midline and the fascial incision was extended bilaterally with the Bovie. The fascial inc ision was then stretched. The rectus muscles were then in the midline and partially transected for adequate visualization. The peritoneum was then entered sharply between two Malu clamps. The peritoneal incision was extended with good visualization of the bladder. The peritoneal incision was then stretched. An Ata retractor was placed. The bladder blade was placed. The vesicouterine peritoneum was adherent to the lower uterine segment. A transverse incision was made in the lower uterine segment with a knife and extended bilaterally with the bandage scissors. The head was delivered without difficulty followed by delivery of the shoulders and body. was bulb suctioned at delivery. The cord was clamped and cut and the was handed to NICU staff in attendance. Cord blood was collected. The placenta was then delivered manually. The uterus was noted to be too large to be exteriorized. It was then cleared of all clots and debris. The hysterotomy was then reapproximated with 0 Vicryl in a running locked fashion. The hysterotomy was inspected and hemostasis was noted. Attention was then turned to the tubal ligation. The left tube was identified, grasped with a karlie and followed out to the fimbriae. The tube was the ligated via a modified Elvaston merhod using 0 chromic suture. The intervening tubal segment was sent to pathology. The right tube was then identified, followed out to the fimbriae and suture ligated via a modified Elvaston method using 0 chromic suture. Bleeding of the mesosalpinx was controlled with interrupted stitches of 2-0 Vicryl. Hemostasis was noted. Surgicel was placed over the tubal ostia bilaterally. The gutters were irrigated and cleared of all clots and debris. The hysterotomy was again inspected and noted to be hemostatic. Surgicel was placed over the hysterotomy. The peritoneum was reapproximated with 2-0 Vicryl in a running fashion incorporating the rectus muscles. The fascia was reapproximated with 0-Vicryl in a running fashion. The subcutaneous tissue was reapproximated with 3-0 Vicryl in a running fashion. The skin was reapproximated with 4-0 Vicryl in a subcuticular fashion. The incision was then covered with steri strips and a pressure dressing. The procedure was then ended. The patient tolerated the procedure well and was taken to the PACU in stable condition. All instrument, lap, and needle counts were correct 3. She will receive magensium sulfate for seizure prophylaxis for 24 hrs after delivery.
--- NOTE | 2019-02-05 23:02 | Procedure Note ---
OB Delivery Note - Delivery Date of Delivery: 02/05/19 Surgeon: KATRINA FONG Estimated blood loss: other (800 mL) - Section Preop diagnosis: repeat , desires sterilization, other (chronic hypertension with superimposed preeclampsia, oligohydramnios ) Postop diagnosis: same section procedure: section, repeat low transverse, bilateral tubal ligation Disposition: PACU Complications: none Narrative: Please see operative report - A at 1 minute: 8 at 5 minutes: 9 Infant Gender: Male (2910g (6lb 6.6 oz) @ 2153 pm)
[2019-02-05] MEDS ORDERED: MAGNESIUM HYDROXIDE (MOM) ORAL LIQD UDC PO PRN (23:03)
[2019-02-05] MEDS ORDERED: MORPHINE 2 MG/1 ML INJ IV PRN (23:03)
[2019-02-05] MEDS ORDERED: KETOROLAC 30 MG/1 ML INJ IV PRN (23:03)
[2019-02-05] MEDS ORDERED: SIMETHICONE 80 MG CHEW TAB PO PRN (23:03)
[2019-02-05] MEDS ORDERED: LANOLIN/ZINC/DIMETHICONE (LANSINOH) 7 GM TP PRN (23:03)
[2019-02-05] MEDS ORDERED: MORPHINE 4 MG/1 ML INJ IV PRN (23:03)
[2019-02-05] MEDS ORDERED: MAGNESIUM SULFATE 4 GM/100 ML BAG IV ONE (23:03)
[2019-02-05] MEDS ORDERED: WITCH HAZEL/ GLYCERIN PAD TP PRN (23:03)
[2019-02-05] MEDS ORDERED: MAGNESIUM SULFATE 40GM/1000ML 40 GM/1,000 ML BAG IV SCH (23:45)
[2019-02-06] MEDS: oxyCODONE /ACETAMINOPHEN 5-325MG TAB PO PRN ×2 (02:38→21:02)
[2019-02-06] MEDS ORDERED: TETANUS,DIPH,PERTUSS(ACELL) VACCINE 0.5 ML SYRINGE IM ONE (06:00)
[2019-02-06] MEDS ORDERED: MEASLES, MUMPS & RUBELLA 12,500 UNIT/0.5 ML VACCINE SUB-Q ONE (06:00)
[2019-02-06] MEDS ORDERED: DEXTROSE 50% IN WATER (25GM) 50 ML SYRINGE IV ONE (07:12)
--- NOTE | 2019-02-06 07:19 | Consultation ---
History of Present Illness - Reason for Consult Consult date: 02/05/19 [facility] Requesting physician: KATRINA FONG - History of Present Illness Pt is a 33 year old female HUAN 02/[birth year] at 38w4d presents after hypoglycemic episode witnessed by family member at home this afternoon. Pt reports feeling hot but her reports that she was not responding when he spoke to her so he called an ambulance. Her glucose was noted to be in the 50s at that time. The patient does have a h/o of insulin dependent diabetes on 58 NPH and 36 Reg in the AM , 40 Regular with dinner and 20 NPH QHS. She reports that she took her insulin this morning but only ate a bowl of cereal this morning before she went to sleep prior to her hypoglycemic episode. She reports movement, and denies vaginal bleeding or leakage of fluid. She has had care at [facility] since 15 wks with comanagement by [facility] complicated by chronic hypertension on no antihypertensives, insulin dependent diabetes, h/o severe preeclampsia at 24 wks with subsequent demise within the first week of life, Hemoglobin C trait, Obesity, Polyhydramnios followed by MFM, and prior x 1. She is GBS positive. During evaluation in triage pt was found to have blood pressures 160-180/90s. Baseline blood pressure earlier this week was 130/70s. BPP was 6/8 (-2 for JOSÉ). Past History Past Medical History: hypertension, diabetes, other (obesity, Hemoglobin C trait ) Past Surgical History: section Family/Genetic History: hypertension Social history: no significant social history - Obstetrical History Expected Date of Delivery: 02/15/19 Actual Gestation: 38 Week(s) 4 Day(s) : 3 Para: 2 Hx # Term Pregnancies: 1 Number of Pregnancies: 1 (24 wks, preeclampsia, demise ) Spontaneous Abortions: 0 Induced : 0 Number of Living Children: 1 Medications and Allergies Allergies Allergy/AdvReac Type Severity Reaction Status Date / Time No Known Allergies Allergy Unverified 09/16/16 14:50 Home Medications Medication Instructions Recorded Confirmed Last Taken Type Ibuprofen [Motrin] 600 mg PO Q8H PRN #30 tablet 09/23/16 Unknown Rx RX: labetaloL [Labetalol 200mg TAB] 200 mg PO TID #30 tablet 09/23/16 Unknown Rx oxyCODONE /ACETAMINOPHEN [Percocet 1 tab PO Q6HR PRN #30 tablet 09/23/16 Unknown Rx 5/325] Past History Social history: no significant social history Medications and Allergies Allergies Allergy/AdvReac Type Severity Reaction Status Date / Time No Known Allergies Allergy Unverified 09/16/16 14:50 Home Medications Medication Instructions Recorded Confirmed Last Taken Type Ibuprofen [Motrin] 600 mg PO Q8H PRN #30 tablet 09/23/16 Unknown Rx labetaloL [Labetalol 200mg TAB] 200 mg PO TID #30 tablet 09/23/16 Unknown Rx oxyCODONE /ACETAMINOPHEN [Percocet 1 tab PO Q6HR PRN #30 tablet 09/23/16 Unknown Rx 5/325] Active Meds: Active Medications Ferrous Sulfate (Feosol) 325 mg PO QDAY GERMAINE Hydralazine HCl (Apresoline) 5 mg IV Q30MIN PRN PRN Reason: Hypertension Lactated Ringer's (Lactated Ringers) 1,000 mls @ 2,250 mls/hr IV PREOP GERMAINE Stop: 02/06/19 18:27 Dextrose (D5w) 1,000 mls @ 100 mls/hr IV DIRECT GERMAINE Oxytocin/Sodium Chloride (Pitocin/Ns 20 Unit/1000ml Drip) 20 units in 1,000 mls @ 250 mls/hr IV DIRECT GERMAINE Lactated Ringer's (Lactated Ringers) 1,000 mls @ 125 mls/hr IV DIRECT GERMAINE Magnesium Sulfate (Magnesium Sulfate 40gm/1000ml) 40 gm in 1,000 mls @ 50 mls /hr IV DIRECT GERMAINE Last Admin: 02/06/19 01:38 Dose: 2 gm/hr, 50 mls/hr Documented by: Ibuprofen (Ibuprofen) 800 mg PO Q6H PRN PRN Reason: Pain, Mild (1-3) Insulin Human Lispro (Humalog) 0 unit SUB-Q Q4HR GEMRAINE; Protocol Ketorolac Tromethamine (Toradol) 30 mg IV Q6H PRN PRN Reason: Pain, Moderate (4-6) Stop: 02/10/19 23:02 Labetalol HCl (Labetalol) 200 mg PO TID GERMAINE Magnesium Hydroxide (Milk Of Magnesia) 30 ml PO QHS PRN PRN Reason: Constip Unrelieved By Senna Morphine Sulfate (Morphine) 4 mg IV Q4H PRN PRN Reason: Pain , Severe (7-10) Morphine Sulfate (Morphine) 2 mg IV Q4H PRN PRN Reason: Pain, Moderate (4-6) Multi-Ingredient Ointment (Lansinoh) 1 applic TP PRN PRN PRN Reason: dryness/cracking Naloxone HCl (Naloxone) 0.2 mg IV Q2MIN PRN PRN Reason: Res Rate </= 8 or 02 SAT < 92% Ondansetron HCl (Zofran) 4 mg IV Q8H PRN PRN Reason: Nausea And Vomiting Oxycodone/Acetaminophen (Percocet 5/325) 2 tab PO Q4H PRN PRN Reason: Pain, Moderate (4-6) Last Admin: 02/06/19 02:38 Dose: 2 tab Documented by: Promethazine HCl (Phenergan) 25 mg PO Q6H PRN PRN Reason: Nausea And Vomiting Promethazine HCl (Phenergan) 25 mg NM Q6H PRN PRN Reason: Nausea And Vomiting Simethicone (Mylicon) 80 mg PO Q6H PRN PRN Reason: Gas pain Sodium Chloride (Sodium Chloride Flush Syringe 10 Ml) 10 ml IV PRN NR Stop: 02/06/19 18:59 Sodium Chloride (Sodium Chloride Flush Syringe 10 Ml) 10 ml IV PRN NR Stop: 02/06/19 23:44 Witch Eva/Glycerin (Tucks Pad) 1 each TP PRN PRN PRN Reason: Hemorrhoids/cleansing/soothing Exam - Constitutional Vitals: Temp Pulse Resp BP Pulse Ox 97.3 F L 86 18 147/81 99 02/05/19 23:15 02/06/19 07:13 02/06/19 00:00 02/06/19 07:10 02/06/19 07:13 General appearance: Present: mild distress, well-nourished - EENT Eyes: Present: PERRL ENT: hearing intact, clear oral mucosa - Neck Neck: Present: supple, normal ROM - Respiratory Respiratory effort: normal Respiratory: bilateral: CTA - Cardiovascular Heart rate: 78 Rhythm: regular Heart Sounds: Present: S1 & S2. Absent: rub, click - Extremities Extremities: no ischemia, pulses intact, pulses symmetrical, No edema Peripheral Pulses: within normal limits - Abdominal General gastrointestinal: Present: soft, non-tender, non-distended, normal bowel sounds Female genitourinary: Present: normal - Integumentary Integumentary: Present: clear, warm, dry - Musculoskeletal Musculoskeletal: gait normal, strength equal bilaterally - Psychiatric Psychiatric: appropriate mood/affect, intact judgment & insight - Neurologic Neurologic: CNII-XII intact, moves all extremities - Allied Health Allied health notes reviewed: nursing Results - Labs CBC & Chem 7: 02/05/19 17:40 02/05/19 19:20 Labs: Abnormal lab results 02/05/19 02/05/19 02/05/19 Range/Units 14:45 15:56 16:48 WBC (4.5-11.0) K/mm3 Hgb (10.1-14.3) gm/dl MCHC (30-34) % Creatinine (0.7-1.2) mg/dL Glucose (65-100) mg/dL POC Glucose 52 L 64 L 59 L (70-105) Magnesium (1.7-2.3) mg/dL Lactate Dehydrogenase (91-180) units/L 02/05/19 02/05/19 02/05/19 Range/Units 17:40 17:40 18:44 WBC 11.1 H (4.5-11.0) K/mm3 Hgb 14.7 H (10.1-14.3) gm/dl MCHC 35 H (30-34) % Creatinine 0.6 L (0.7-1.2) mg/dL Glucose (65-100) mg/dL POC Glucose 60 L (70-105) Magnesium (1.7-2.3) mg/dL Lactate Dehydrogenase 233 H (91-180) units/L 02/05/19 02/05/19 02/06/19 Range/Units 19:15 19:20 01:08 WBC (4.5-11.0) K/mm3 Hgb (10.1-14.3) gm/dl MCHC (30-34) % Creatinine (0.7-1.2) mg/dL Glucose 137 H (65-100) mg/dL POC Glucose 64 L 53 L (70-105) Magnesium (1.7-2.3) mg/dL Lactate Dehydrogenase (91-180) units/L 02/06/19 02/06/19 02/06/19 Range/Units 01:48 03:30 05:52 WBC (4.5-11.0) K/mm3 Hgb (10.1-14.3) gm/dl MCHC (30-34) % Creatinine (0.7-1.2) mg/dL Glucose (65-100) mg/dL POC Glucose 120 H 218 H (70-105) Magnesium 4.10 H (1.7-2.3) mg/dL Lactate Dehydrogenase (91-180) units/L Assessment and Plan - Patient Problems (1) Hypoglycemia due to insulin Current Visit: Yes Status: Acute Plan to address problem: Patient given IV Glucagonx2 D50w and IV D5w TO cont IV D5w till Csection completed Maintain higher glucose levels than lower glucose levels (2) IDDM (insulin dependent diabetes mellitus) Current Visit: Yes Status: Chronic Plan to address problem: Patient is tightly controlled A1c is normal Low dose coverage for now Resume home insulin at lower levels once she starts eating Accuchecks q4h and low dose s/s coverage. Will change to moderate S/s coverage once BG levels are above 150 consistently (3) HTN (hypertension) Current Visit: Yes Status: Chronic Qualifiers: Hypertension type: essential hypertension Qualified Code(s): I10 - Essential (primary) hypertension Plan to address problem: Cont antihypertensives (4) DVT prophylaxis Current Visit: Yes Status: Acute Plan to address problem: On SCD's
[2019-02-06] MEDS ORDERED: DEXTROSE 50% IN WATER (25GM) 50 ML SYRINGE IV PRN (07:30)
--- NOTE | 2019-02-06 08:10 | Progress Note ---
Assessment and Plan POD#1 s/p repeat csec Uncontrolled DM Preecl[place]ia morbid Obesity consulted IM Dr. Vasquez about blood sugar- check q30 min on mag for pree 24 hrs ( up at 1p) routine PP care Subjective - Subjective Date of service: 02/06/19 Principal diagnosis: s/p csec Patient reports: appetite normal, voiding normally, pain well controlled, flatus, ambulating normally [place]: doing well Objective - Vital Signs Latest vital signs: Vital Signs Temp Pulse Resp BP BP Pulse Ox 02/06/19 07:58 83 100 02/06/19 07:53 83 99 02/06/19 07:48 87 99 02/06/19 07:44 76 141/78 02/06/19 07:43 82 99 02/06/19 07:38 81 99 02/06/19 07:33 79 99 02/06/19 07:28 80 99 02/06/19 07:23 79 99 02/06/19 07:18 82 98 02/06/19 07:14 83 135/70 02/06/19 07:13 86 99 02/06/19 07:10 85 147/81 02/06/19 07:08 91 H 98 02/06/19 07:03 92 H 97 02/06/19 06:58 88 98 02/06/19 06:53 86 100 02/06/19 06:51 91 H 92 02/06/19 06:48 86 100 02/06/19 06:44 82 134/74 02/06/19 06:43 85 99 02/06/19 06:38 86 98 02/06/19 06:33 84 99 02/06/19 06:28 85 96 02/06/19 06:23 84 99 02/06/19 06:18 82 99 02/06/19 06:14 83 153/79 02/06/19 06:13 85 99 02/06/19 06:08 84 99 02/06/19 06:03 81 100 02/06/19 05:58 85 99 02/06/19 05:53 86 99 02/06/19 05:48 84 99 02/06/19 05:44 81 140/74 02/06/19 05:43 83 98 02/06/19 05:38 82 99 02/06/19 05:33 83 99 12/18/19 05:28 85 99 12/18/19 05:18 85 99 12/18/19 05:14 81 143/77 12/18/19 05:13 85 98 12/18/19 05:08 83 100 12/18/19 05:03 84 100 12/18/19 04:58 83 100 12/18/19 04:53 81 100 12/18/19 04:48 81 100 12/18/19 04:44 80 144/80 12/18/19 04:43 83 99 12/18/19 04:38 84 100 12/18/19 04:33 88 100 12/18/19 04:28 84 100 12/18/19 04:23 81 100 12/18/19 04:18 84 100 12/18/19 04:14 82 169/81 12/18/19 04:13 82 100 12/18/19 04:08 84 100 12/18/19 04:03 85 100 12/18/19 03:58 83 100 12/18/19 03:53 86 100 12/18/19 03:48 83 100 12/18/19 03:44 85 144/70 12/18/19 03:43 91 H 100 12/18/19 03:38 75 100 12/18/19 03:33 82 100 12/18/19 03:28 84 100 12/18/19 03:23 82 100 12/18/19 03:18 85 100 12/18/19 03:14 83 148/75 12/18/19 03:13 83 100 12/18/19 03:08 80 100 12/18/19 03:03 80 100 12/18/19 02:58 79 100 12/18/19 02:53 80 100 12/18/19 02:48 85 100 12/18/19 02:44 85 161/76 12/18/19 02:43 82 100 12/18/19 02:38 84 100 12/18/19 02:33 80 100 12/18/19 02:28 84 100 12/18/19 02:23 75 100 12/18/19 02:18 70 100 12/18/19 02:14 75 136/70 12/18/19 02:13 75 100 12/18/19 02:08 70 100 12/18/19 02:03 74 100 12/18/19 01:58 72 100 12/18/19 01:53 67 100 18/19 01:48 69 100 18/19 01:43 70 139/72 100 18/19 01:38 70 100 18/19 01:33 69 100 18/19 01:28 73 139/72 100 18/19 01:23 69 100 18/19 01:18 74 100 18/19 01:13 71 142/82 100 18/19 01:08 75 100 18/ 01:03 71 100 18/19 00:59 68 144/77 18/ 00:58 70 100 18/19 00:53 69 100 18/19 00:48 58 L 100 02/06/19 00:45 56 L 145/68 18 00:43 61 100 18/ 00:38 60 100 18/ 00:33 60 100 1819 00:29 59 L 122/87 18 00:28 58 L 100 18 00:23 68 100 18/19 00:18 60 100 18/19 00:13 63 127/85 100 18/19 00:08 60 100 18/19 00:03 59 L 100 18 00:00 60 18 127/85 100 02/05/19 23:58 67 131/89 100 02/05/19 23:53 64 100 02/05/19 23:48 65 100 02/05/19 23:45 68 18 131/89 100 19 23:44 60 123/80 02/05/19 23:43 65 100 02/05/19 23:38 60 100 02/05/19 23:33 61 100 02/05/19 23:30 63 18 123/80 100 02/05/19 23:29 59 L 134/76 17/19 23:28 64 100 17/19 23:25 75 18 142/82 100 02/05/19 23:23 62 100 02/05/ 23:20 68 18 144/77 100 02/05/19 23:18 61 100 02/05/19 23:15 97.3 F L 65 18 134/65 100 17/19 23:13 62 100 12/17/19 23:09 64 136/78 1217/19 23:08 67 100 17/19 20:58 76 138/80 1217/19 20:17 71 148/77 99 17/19 20:12 69 100 17/19 20:07 86 99 17/19 20:02 76 100 17/19 19:34 96 H 100 1719 19:30 98.3 F 72 18 144/84 100 17/19 19:29 79 99 17/19 19:28 81 164/89 17/19 19:24 87 100 17/19 19:19 101 H 100 17/19 19:14 83 100 17/19 19:13 87 168/85 17/19 19:09 87 100 17/19 19:04 88 100 17/19 19:01 87 168/81 17/19 18:58 86 185/95 17/19 18:43 78 137/75 17/19 17:28 78 100 17/19 17:23 78 100 17/19 17:18 78 100 17/19 17:13 68 183/103 100 17/19 17:01 87 100 17/19 16:58 68 176/93 17/19 16:56 70 100 17/19 16:51 67 100 17/19 16:46 79 100 17/19 16:44 72 169/96 17/19 16:41 87 100 17/19 16:36 68 100 17/19 16:31 61 100 17/19 16:30 63 160/86 17/19 16:26 68 100 17/19 16:21 61 100 17/19 16:16 67 100 17/19 16:13 64 142/80 17/19 16:11 56 L 100 17/19 16:06 59 L 100 17/19 16:01 62 100 17/19 15:58 64 154/82 1217/19 15:56 63 100 17/19 15:51 63 100 17/19 15:46 71 100 17/19 15:45 71 157/84 02/05/19 15:41 64 100 02/05/19 15:36 75 100 02/05/19 15:31 68 100 02/05/19 15:30 69 140/83 02/05/19 15:26 62 98 02/05/19 15:21 64 100 02/05/19 15:16 65 100 02/05/19 15:14 66 158/97 02/05/19 15:11 64 100 02/05/19 15:06 75 100 02/05/19 15:01 65 100 02/05/19 14:58 67 141/73 02/05/19 14:56 64 100 02/05/19 14:51 63 100 02/05/19 14:46 66 100 02/05/19 14:43 64 148/79 02/05/19 14:41 64 100 02/05/19 14:37 63 152/80 02/05/19 14:36 67 100 02/05/19 14:31 75 100 02/05/19 14:30 97.9 F 02/05/19 14:27 67 166/86 02/05/19 14:26 66 100 02/05/19 14:21 71 100 Intake and Output 02/05/19 02/06/19 02/06/19 23:59 07:59 15:59 Intake Total 500 Output Total 200 700 Balance 300 -700 Intake: IV 500 Output: Urine 200 700 Indwelling Catheter 500 Uretheral (Renee) 100 200 Other: Total, Output Amount 100 Estimated Blood Loss 800 - Exam Breasts: Present: normal Cardiovascular: Present: Regular rate, Normal S1 Lungs: Present: Clear to auscultation, Normal air movement Abdomen: Present: normal appearance, soft, normal bowel sounds. Absent: tenderness, guarding Vulva: both: normal Uterus: Present: normal, firm, fundal height below umbilicus. Absent: bogginess, tenderness Extremities: Present: normal Deep Tendon Reflex Grade: Normal +2 Incision: Present: normal, dry, intact - Labs Labs: Abnormal lab results 02/05/19 02/05/19 02/05/19 Range/Units 14:45 15:56 16:48 WBC (4.5-11.0) K/mm3 Hgb (10.1-14.3) gm/dl MCHC (30-34) % Creatinine (0.7-1.2) mg/dL Glucose (65-100) mg/dL POC Glucose 52 L 64 L 59 L (70-105) Magnesium (1.7-2.3) mg/dL Lactate Dehydrogenase (91-180) units/L 02/05/19 02/05/19 02/05/19 Range/Units 17:40 17:40 18:44 WBC 11.1 H (4.5-11.0) K/mm3 Hgb 14.7 H (10.1-14.3) gm/dl MCHC 35 H (30-34) % Creatinine 0.6 L (0.7-1.2) mg/dL Glucose (65-100) mg/dL POC Glucose 60 L (70-105) Magnesium (1.7-2.3) mg/dL Lactate Dehydrogenase 233 H (91-180) units/L 02/05/19 02/05/19 02/06/19 Range/Units 19:15 19:20 01:08 WBC (4.5-11.0) K/mm3 Hgb (10.1-14.3) gm/dl MCHC (30-34) % Creatinine (0.7-1.2) mg/dL Glucose 137 H (65-100) mg/dL POC Glucose 64 L 53 L (70-105) Magnesium (1.7-2.3) mg/dL Lactate Dehydrogenase (91-180) units/L 02/06/19 02/06/19 02/06/19 Range/Units 01:48 03:30 05:52 WBC (4.5-11.0) K/mm3 Hgb (10.1-14.3) gm/dl MCHC (30-34) % Creatinine (0.7-1.2) mg/dL Glucose (65-100) mg/dL POC Glucose 120 H 218 H (70-105) Magnesium 4.10 H (1.7-2.3) mg/dL Lactate Dehydrogenase (91-180) units/L 02/06/19 02/06/19 Range/Units 07:00 07:02 WBC (4.5-11.0) K/mm3 Hgb (10.1-14.3) gm/dl MCHC (30-34) % Creatinine (0.7-1.2) mg/dL Glucose (65-100) mg/dL POC Glucose < 40 L < 40 L (70-105) Magnesium (1.7-2.3) mg/dL Lactate Dehydrogenase (91-180) units/L
[2019-02-06] MEDS: hydrALAZINE 20 MG/1 ML INJ IV PRN (08:33)
[2019-02-06] MEDS ORDERED: DEXTROSE 10% IN WATER 500 ML IV ONE (09:00)
[2019-02-06] MEDS ORDERED: D5W/LACTATED RINGERS 1,000 ML IV ONE (10:00)
[2019-02-06] MEDS: INSULIN LISPRO 100 UNIT/ML SUB-Q SCH ×4 (11:20→22:32)
[2019-02-06 11:58] LABS: Hematocrit 36.3 % (30.3-42.9); Hemoglobin 12.6 gm/dl (10.1-14.3)
--- NOTE | 2019-02-06 16:23 | Progress Note ---
Assessment and Plan / Hypoglycemia due to insulin Patient given IV Glucagonx2 D50w and IV D5w will give 500ml of D10 and monitor BG q4h Maintain higher glucose levels than lower glucose levels / IDDM (insulin dependent diabetes mellitus) Patient is tightly controlled A1c is normal Low dose coverage for now Resume home insulin at lower levels once she starts eating and BG is stable Accuchecks q4h and low dose s/s coverage. Will change to moderate S/s coverage once BG levels are above 150 consistently / HTN (hypertension) Cont antihypertensives / DVT prophylaxis On SCD's Subjective Date of service: 02/06/19 Principal diagnosis: s/p csec Interval history: patient seen and examined c/o not eating much denies chest pain or SOB feels tired Objective - Constitutional Vitals: Vital Signs - 12hr 02/06/19 02/06/19 02/06/19 04:23 04:28 04:33 Pulse Rate 81 84 88 Blood Pressure O2 Sat by Pulse 100 100 100 Oximetry 02/06/19 02/06/19 02/06/19 04:38 04:43 04:44 Pulse Rate 84 83 80 Blood Pressure 144/80 O2 Sat by Pulse 100 99 Oximetry 02/06/19 02/06/19 02/06/19 04:48 04:53 04:58 Pulse Rate 81 81 83 Blood Pressure O2 Sat by Pulse 100 100 100 Oximetry 02/06/19 02/06/19 02/06/19 05:03 05:08 05:13 Pulse Rate 84 83 85 Blood Pressure O2 Sat by Pulse 100 100 98 Oximetry 02/06/19 02/06/19 02/06/19 05:14 05:18 05:28 Pulse Rate 81 85 85 Blood Pressure 143/77 O2 Sat by Pulse 99 99 Oximetry 02/06/19 02/06/19 02/06/19 05:33 05:38 05:43 Pulse Rate 83 82 83 Blood Pressure O2 Sat by Pulse 99 99 98 Oximetry 02/06/19 02/06/19 02/06/19 05:44 05:48 05:53 Pulse Rate 81 84 86 Blood Pressure 140/74 O2 Sat by Pulse 99 99 Oximetry 02/06/19 02/06/19 02/06/19 05:58 06:03 06:08 Pulse Rate 85 81 84 Blood Pressure O2 Sat by Pulse 99 100 99 Oximetry 02/06/19 02/06/19 02/06/19 06:13 06:14 06:18 Pulse Rate 85 83 82 Blood Pressure 153/79 O2 Sat by Pulse 99 99 Oximetry 02/06/19 02/06/19 02/06/19 06:23 06:28 06:33 Pulse Rate 84 85 84 Blood Pressure O2 Sat by Pulse 99 96 99 Oximetry 02/06/19 02/06/19 02/06/19 06:38 06:43 06:44 Pulse Rate 86 85 82 Blood Pressure 134/74 O2 Sat by Pulse 98 99 Oximetry 02/06/19 02/06/19 02/06/19 06:48 06:51 06:53 Pulse Rate 86 91 H 86 Blood Pressure O2 Sat by Pulse 100 92 100 Oximetry 02/06/19 02/06/19 02/06/19 06:58 07:03 07:08 Pulse Rate 88 92 H 91 H Blood Pressure O2 Sat by Pulse 98 97 98 Oximetry 02/06/19 02/06/19 02/06/19 07:10 07:13 07:14 Pulse Rate 85 86 83 Blood Pressure 147/81 135/70 O2 Sat by Pulse 99 Oximetry 02/06/19 02/06/19 02/06/19 07:18 07:23 07:28 Pulse Rate 82 79 80 Blood Pressure O2 Sat by Pulse 98 99 99 Oximetry 02/06/19 02/06/19 02/06/19 07:33 07:38 07:43 Pulse Rate 79 81 82 Blood Pressure O2 Sat by Pulse 99 99 99 Oximetry 02/06/19 02/06/19 02/06/19 07:44 07:48 07:53 Pulse Rate 76 87 83 Blood Pressure 141/78 O2 Sat by Pulse 99 99 Oximetry 02/06/19 02/06/19 02/06/19 07:58 08:03 08:08 Pulse Rate 83 84 79 Blood Pressure O2 Sat by Pulse 100 99 100 Oximetry 02/06/19 02/06/19 02/06/19 08:13 08:14 08:18 Pulse Rate 84 81 81 Blood Pressure 175/95 O2 Sat by Pulse 99 99 Oximetry 02/06/19 02/06/19 02/06/19 08:23 08:28 08:33 Pulse Rate 83 89 81 Blood Pressure 175/95 O2 Sat by Pulse 99 98 100 Oximetry 1202/06/19 02/06/19 08:38 08:43 08:44 Pulse Rate 82 86 82 Blood Pressure 190/91 O2 Sat by Pulse 99 100 Oximetry 02/06/19 02/06/19 02/06/19 08:48 08:53 08:58 Pulse Rate 83 82 86 Blood Pressure O2 Sat by Pulse 100 99 99 Oximetry 02/06/19 02/06/19 02/06/19 09:03 09:08 09:13 Pulse Rate 86 82 90 Blood Pressure O2 Sat by Pulse 99 99 99 Oximetry 02/06/19 02/06/19 02/06/19 09:14 09:17 09:18 Pulse Rate 83 85 87 Blood Pressure 180/87 145/77 O2 Sat by Pulse 100 Oximetry 02/06/19 02/06/19 02/06/19 09:23 09:28 09:33 Pulse Rate 84 83 83 Blood Pressure O2 Sat by Pulse 99 99 98 Oximetry 02/06/19 02/06/19 02/06/19 09:38 09:43 09:44 Pulse Rate 81 84 83 Blood Pressure 134/73 O2 Sat by Pulse 99 99 Oximetry 02/06/19 02/06/19 02/06/19 09:48 09:53 09:58 Pulse Rate 86 89 85 Blood Pressure O2 Sat by Pulse 99 99 99 Oximetry 02/06/19 02/06/19 02/06/19 10:03 10:08 10:13 Pulse Rate 83 83 86 Blood Pressure O2 Sat by Pulse 99 99 99 Oximetry 02/06/19 02/06/19 02/06/19 10:14 10:18 10:23 Pulse Rate 82 81 88 Blood Pressure 143/79 O2 Sat by Pulse 99 100 Oximetry 02/06/19 02/06/19 02/06/19 10:28 10:33 10:38 Pulse Rate 86 85 84 Blood Pressure O2 Sat by Pulse 100 100 100 Oximetry 02/06/19 02/06/19 02/06/19 10:43 10:44 10:48 Pulse Rate 87 86 86 Blood Pressure 137/82 O2 Sat by Pulse 100 99 Oximetry 02/06/19 02/06/19 02/06/19 10:53 10:58 11:03 Pulse Rate 83 88 83 Blood Pressure O2 Sat by Pulse 100 100 100 Oximetry 02/06/19 02/06/19 02/06/19 11:08 11:13 11:14 Pulse Rate 81 83 78 Blood Pressure 137/79 O2 Sat by Pulse 99 99 Oximetry 02/06/19 02/06/19 02/06/19 11:18 11:23 11:28 Pulse Rate 80 83 84 Blood Pressure O2 Sat by Pulse 99 99 99 Oximetry 02/06/19 02/06/19 02/06/19 11:33 11:38 11:41 Pulse Rate 95 H 81 98 H Blood Pressure O2 Sat by Pulse 98 99 93 Oximetry 02/06/19 02/06/19 02/06/19 11:43 11:44 11:48 Pulse Rate 85 84 84 Blood Pressure 151/79 O2 Sat by Pulse 98 100 Oximetry 02/06/19 02/06/19 02/06/19 11:53 11:58 12:03 Pulse Rate 84 82 85 Blood Pressure O2 Sat by Pulse 100 100 98 Oximetry 02/06/19 02/06/19 02/06/19 12:08 12:11 12:13 Pulse Rate 82 85 82 Blood Pressure O2 Sat by Pulse 99 90 99 Oximetry 02/06/19 02/06/19 02/06/19 12:14 12:18 12:23 Pulse Rate 88 83 83 Blood Pressure 129/74 O2 Sat by Pulse 100 100 Oximetry 02/06/19 02/06/19 02/06/19 12:28 12:33 12:38 Pulse Rate 88 85 92 H Blood Pressure O2 Sat by Pulse 100 99 98 Oximetry 02/06/19 02/06/19 02/06/19 12:39 12:43 12:44 Pulse Rate 91 H 94 H 90 Blood Pressure 147/87 O2 Sat by Pulse 88 100 Oximetry 02/06/19 02/06/19 02/06/19 12:48 12:53 12:58 Pulse Rate 91 H 100 H 93 H Blood Pressure O2 Sat by Pulse 100 100 100 Oximetry 02/06/19 02/06/19 02/06/19 13:03 13:08 13:13 Pulse Rate 88 90 86 Blood Pressure O2 Sat by Pulse 100 99 99 Oximetry 02/06/19 02/06/19 02/06/19 13:14 13:18 13:23 Pulse Rate 85 83 84 Blood Pressure 131/70 O2 Sat by Pulse 99 99 Oximetry 02/06/19 02/06/19 02/06/19 13:28 13:33 13:38 Pulse Rate 83 81 82 Blood Pressure O2 Sat by Pulse 99 99 99 Oximetry 02/06/19 02/06/19 02/06/19 13:43 13:44 13:48 Pulse Rate 107 H 96 H 92 H Blood Pressure 126/72 O2 Sat by Pulse 99 96 Oximetry 02/06/19 02/06/19 02/06/19 13:53 13:58 14:03 Pulse Rate 85 82 87 Blood Pressure O2 Sat by Pulse 100 100 100 Oximetry 02/06/19 02/06/19 02/06/19 14:08 14:13 14:14 Pulse Rate 85 85 84 Blood Pressure 133/76 O2 Sat by Pulse 100 99 Oximetry 02/06/19 02/06/19 02/06/19 14:18 14:23 14:28 Pulse Rate 86 82 90 Blood Pressure O2 Sat by Pulse 99 99 99 Oximetry 02/06/19 02/06/19 02/06/19 14:33 14:38 14:43 Pulse Rate 86 85 83 Blood Pressure O2 Sat by Pulse 99 100 99 Oximetry 02/06/19 02/06/19 02/06/19 14:44 14:48 14:53 Pulse Rate 83 83 86 Blood Pressure 126/64 O2 Sat by Pulse 99 100 Oximetry 02/06/19 02/06/19 02/06/19 14:58 15:03 15:08 Pulse Rate 88 88 83 Blood Pressure O2 Sat by Pulse 100 100 100 Oximetry 02/06/19 02/06/19 02/06/19 15:13 15:14 15:18 Pulse Rate 91 H 88 84 Blood Pressure 127/68 O2 Sat by Pulse 100 100 Oximetry 02/06/19 02/06/19 02/06/19 15:23 15:28 15:33 Pulse Rate 81 81 81 Blood Pressure O2 Sat by Pulse 100 100 100 Oximetry 02/06/19 02/06/19 02/06/19 15:38 15:43 15:44 Pulse Rate 82 87 80 Blood Pressure 130/64 O2 Sat by Pulse 100 100 Oximetry 02/06/19 02/06/19 02/06/19 15:48 15:53 15:58 Pulse Rate 83 77 79 Blood Pressure O2 Sat by Pulse 99 99 100 Oximetry 02/06/19 02/06/19 02/06/19 16:03 16:08 16:13 Pulse Rate 78 73 81 Blood Pressure O2 Sat by Pulse 100 99 99 Oximetry 02/06/19 02/06/19 16:14 16:18 Pulse Rate 78 82 Blood Pressure 135/75 O2 Sat by Pulse 99 Oximetry General appearance: Present: no acute distress, well-nourished - EENT Eyes: PERRL, EOM intact ENT: hearing intact, clear oral mucosa Ears: bilateral: normal - Neck Neck: supple, normal ROM - Respiratory Respiratory effort: normal Respiratory: bilateral: CTA - Cardiovascular Rhythm: regular Heart Sounds: Present: S1 & S2. Absent: gallop, rub Extremities: pulses intact, No edema, normal color, Full ROM - Gastrointestinal General gastrointestinal: Present: soft, non-tender, non-distended, normal bowel sounds - Integumentary Integumentary: clear, warm, dry - Musculoskeletal Musculoskeletal: 1, strength equal bilaterally - Neurologic Neurologic: moves all extremities - Psychiatric Psychiatric: memory intact, appropriate mood/affect, intact judgment & insight - Labs CBC & Chem 7: 02/06/19 11:26 02/05/19 19:20 Labs: Abnormal lab results 02/05/19 02/05/19 02/05/19 Range/Units 16:48 17:40 17:40 WBC 11.1 H (4.5-11.0) K/mm3 Hgb 14.7 H (10.1-14.3) gm/dl MCHC 35 H (30-34) % Creatinine 0.6 L (0.7-1.2) mg/dL Glucose (65-100) mg/dL POC Glucose 59 L (70-105) Magnesium (1.7-2.3) mg/dL Lactate Dehydrogenase 233 H (91-180) units/L 02/05/19 02/05/19 02/05/19 Range/Units 18:44 19:15 19:20 WBC (4.5-11.0) K/mm3 Hgb (10.1-14.3) gm/dl MCHC (30-34) % Creatinine (0.7-1.2) mg/dL Glucose 137 H (65-100) mg/dL POC Glucose 60 L 64 L (70-105) Magnesium (1.7-2.3) mg/dL Lactate Dehydrogenase (91-180) units/L 02/06/19 02/06/19 02/06/19 Range/Units 01:08 01:48 03:30 WBC (4.5-11.0) K/mm3 Hgb (10.1-14.3) gm/dl MCHC (30-34) % Creatinine (0.7-1.2) mg/dL Glucose (65-100) mg/dL POC Glucose 53 L 120 H 218 H (70-105) Magnesium (1.7-2.3) mg/dL Lactate Dehydrogenase (91-180) units/L 02/06/19 02/06/19 02/06/19 Range/Units 05:52 07:00 07:02 WBC (4.5-11.0) K/mm3 Hgb (10.1-14.3) gm/dl MCHC (30-34) % Creatinine (0.7-1.2) mg/dL Glucose (65-100) mg/dL POC Glucose < 40 L < 40 L (70-105) Magnesium 4.10 H (1.7-2.3) mg/dL Lactate Dehydrogenase (91-180) units/L 02/06/19 02/06/19 02/06/19 Range/Units 07:57 14:21 14:58 WBC (4.5-11.0) K/mm3 Hgb (10.1-14.3) gm/dl MCHC (30-34) % Creatinine (0.7-1.2) mg/dL Glucose (65-100) mg/dL POC Glucose 124 H 157 H (70-105) Magnesium 5.30 H (1.7-2.3) mg/dL Lactate Dehydrogenase (91-180) units/L 02/06/19 Range/Units 16:27 WBC (4.5-11.0) K/mm3 Hgb (10.1-14.3) gm/dl MCHC (30-34) % Creatinine (0.7-1.2) mg/dL Glucose (65-100) mg/dL POC Glucose 122 H (70-105) Magnesium (1.7-2.3) mg/dL Lactate Dehydrogenase (91-180) units/L
[2019-02-06] MEDS ORDERED: MAGNESIUM SULFATE 40GM/1000ML 40 GM/1,000 ML BAG IV SCH (22:12)
[2019-02-07] MEDS: IBUPROFEN 800 MG TAB PO PRN ×2 (05:52→17:19)
[2019-02-07] MEDS ORDERED: TETANUS,DIPH,PERTUSS(ACELL) VACCINE 0.5 ML SYRINGE IM ONE (06:00)
--- NOTE | 2019-02-07 08:45 | Progress Note ---
Assessment and Plan POD2 s/p c/s Preeclampsia s/p mag sulfate Insulin dependent DM. Continue accucheck q4h. Resume low dose Insulin when eating No flatus- initiate bowel regimen Temp and HR stable Labs stable Continue to monitor. Anticipate d/c to home on POD3 Subjective - Subjective Date of service: 02/07/19 Principal diagnosis: s/p csec Interval history: POD2 s/p c/s. Preeclampsia s/p mag sulfate. Insulin dependent DM, recent episode of hypoglycemia. BG is now stable. Patient reports: voiding normally, pain well controlled, ambulating normally, no flatus, no bowel movement : in NICU Objective - Vital Signs Latest vital signs: Vital Signs Temp Pulse Resp BP BP Pulse Ox 02/07/19 04:05 99.1 F 77 18 155/91 100 02/07/19 02:40 98.6 F 79 18 146/76 99 02/07/19 01:54 81 161/88 02/07/19 01:47 58 L 91 02/07/19 01:44 76 163/84 02/07/19 01:42 80 100 02/07/19 01:37 83 100 02/07/19 01:32 79 100 02/07/19 01:27 79 99 02/07/19 01:22 81 99 02/07/19 01:17 80 99 02/07/19 01:14 80 138/80 02/07/19 01:12 80 99 02/07/19 01:07 84 100 02/07/19 01:02 83 97 02/07/19 01:01 85 92 02/07/19 00:57 77 100 02/07/19 00:55 84 94 02/07/19 00:52 70 98 02/07/19 00:50 84 92 02/07/19 00:47 79 97 02/07/19 00:44 77 129/78 02/07/19 00:42 76 100 02/07/19 00:37 84 100 02/07/19 00:32 84 100 02/07/19 00:27 79 98 02/07/19 00:22 82 99 02/07/19 00:17 83 99 02/07/19 00:14 82 124/65 02/07/19 00:12 80 98 02/07/19 00:10 97.8 F 12/19/19 00:07 85 100 12/19/19 00:02 84 99 12/18/19 23:57 81 100 12/18/19 23:52 85 99 /18/19 23:47 87 97 12/18/19 23:44 86 113/63 1218/19 23:42 80 97 12/18/19 23:37 82 99 12/18/19 23:32 81 97 18/19 23:27 82 98 18/19 23:22 85 99 18/19 23:17 95 H 100 18/19 23:14 83 118/63 18/19 23:12 85 99 /18/19 23:07 86 99 18/19 23:02 81 99 18/19 22:57 83 98 18/19 22:52 87 99 18/19 22:47 80 98 18/19 22:44 80 128/67 18/19 22:42 89 98 18/19 22:37 87 99 18/19 22:32 80 98 18/19 22:27 79 98 18/19 22:22 78 98 18/19 22:20 97.6 F 18/19 22:14 78 131/71 18/19 21:44 85 140/79 18/19 21:14 83 159/76 18/19 21:02 18 18/19 20:57 87 100 18/19 20:52 84 100 18/19 20:47 89 100 18/19 20:44 90 124/76 18/19 20:32 91 H 100 1218/19 20:27 89 100 12/18/19 20:22 89 99 /18/19 20:17 92 H 99 /18/19 20:15 97.6 F 18 18/19 20:14 93 H 146/72 1218/19 20:12 96 H 99 12/18/19 20:11 99 H 88 12/18/19 20:07 90 100 12/18/19 20:02 88 100 12/18/19 19:57 90 100 1218/19 19:52 93 H 100 1218/19 19:47 90 100 18/19 19:44 93 H 125/65 12/18/19 19:42 92 H 99 12/18/19 19:37 91 H 100 12/18/19 19:32 90 100 12/18/19 19:27 90 100 12/18/19 19:22 91 H 100 12/18/19 19:17 97 H 100 12/18/19 19:14 88 148/81 12/18/19 19:12 91 H 100 12/18/19 19:07 89 100 12/18/19 19:02 91 H 99 12/18/19 18:57 89 100 12/18/19 18:52 88 100 12/18/19 18:47 87 100 12/18/19 18:44 83 139/81 12/18/19 18:42 87 100 12/18/19 18:37 95 H 100 12/18/19 18:32 90 100 12/18/19 18:27 88 100 12/18/19 18:22 87 100 12/18/19 18:17 85 100 12/18/19 18:14 82 142/82 12/18/19 18:12 84 100 12/18/19 18:07 86 100 12/18/19 18:02 87 100 12/18/19 17:57 88 100 12/18/19 17:52 88 100 12/18/19 17:44 89 142/81 12/18/19 17:28 85 100 12/18/19 17:23 86 98 12/18/19 17:18 83 99 12/18/19 17:14 83 138/77 12/18/19 17:13 84 99 12/18/19 17:08 79 99 12/18/19 17:03 83 100 12/18/19 16:58 79 99 12/18/19 16:53 82 100 12/18/19 16:48 80 100 12/18/19 16:44 80 141/77 12/18/19 16:43 80 99 12/18/19 16:38 88 99 12/18/19 16:33 81 98 12/18/19 16:28 76 99 12/18/19 16:23 75 99 12/18/19 16:18 82 99 12/18/19 16:14 78 135/75 12/18/19 16:13 81 99 12/18/19 16:08 73 99 12/18/19 16:03 78 100 12/18/19 15:58 79 100 12/18/19 15:53 77 99 12/18/19 15:48 83 99 12/18/19 15:44 80 130/64 12/18/19 15:43 87 100 12/18/19 15:38 82 100 12/18/19 15:33 81 100 12/18/19 15:28 81 100 12/18/19 15:23 81 100 12/18/19 15:18 84 100 12/18/19 15:14 88 127/68 12/18/19 15:13 91 H 100 12/18/19 15:08 83 100 12/18/19 15:03 88 100 12/18/19 14:58 88 100 12/18/19 14:53 86 100 12/18/19 14:48 83 99 /18/19 14:44 83 126/64 12/18/19 14:43 83 99 12/18/19 14:38 85 100 12/18/19 14:33 86 99 12/18/19 14:28 90 99 12/18/19 14:23 82 99 12/18/19 14:18 86 99 12/18/19 14:14 84 133/76 12/18/19 14:13 85 99 12/18/19 14:08 85 100 /18/19 14:03 87 100 12/18/19 13:58 82 100 12/18/19 13:53 85 100 12/18/19 13:48 92 H 96 12/18/19 13:44 96 H 126/72 12/18/19 13:43 107 H 99 12/18/19 13:38 82 99 12/18/19 13:33 81 99 12/18/19 13:28 83 99 12/18/19 13:23 84 99 12/18/19 13:18 83 99 12/18/19 13:14 85 131/70 12/18/19 13:13 86 99 12/18/19 13:08 90 99 12/18/19 13:03 88 100 12/18/19 12:58 93 H 100 12/18/19 12:53 100 H 100 12/18/19 12:48 91 H 100 12/18/19 12:44 90 147/87 12/18/19 12:43 94 H 100 12/18/19 12:39 91 H 88 12/18/19 12:38 92 H 98 12/18/19 12:33 85 99 12/18/19 12:28 88 100 12/18/19 12:23 83 100 12/18/19 12:18 83 100 12/18/19 12:14 88 129/74 12/18/19 12:13 82 99 12/18/19 12:11 85 90 12/18/19 12:08 82 99 12/18/19 12:03 85 98 12/18/19 11:58 82 100 12/18/19 11:53 84 100 12/18/19 11:48 84 100 12/18/19 11:44 84 151/79 12/18/19 11:43 85 98 12/18/19 11:41 98 H 93 12/18/19 11:38 81 99 12/18/19 11:33 95 H 98 12/18/19 11:28 84 99 12/18/19 11:23 83 99 12/18/19 11:18 80 99 12/18/19 11:14 78 137/79 12/18/19 11:13 83 99 12/18/19 11:08 81 99 12/18/19 11:03 83 100 12/18/19 10:58 88 100 12/18/19 10:53 83 100 12/18/19 10:48 86 99 12/18/19 10:44 86 137/82 12/18/19 10:43 87 100 12/18/19 10:38 84 100 12/18/19 10:33 85 100 12/18/19 10:28 86 100 12/18/19 10:23 88 100 12/18/19 10:18 81 99 12/18/19 10:14 82 143/79 12/18/19 10:13 86 99 12/18/19 10:08 83 99 12/18/19 10:03 83 99 12/18/19 09:58 85 99 12/18/19 09:53 89 99 12/18/19 09:48 86 99 12/18/19 09:44 83 134/73 12/18/19 09:43 84 99 12/18/19 09:38 81 99 12/18/19 09:33 83 98 12/18/19 09:28 83 99 12/18/19 09:23 84 99 12/18/19 09:18 87 100 02/06/19 09:17 85 145/77 02/06/19 09:14 83 180/87 02/06/19 09:13 90 99 02/06/19 09:08 82 99 02/06/19 09:03 86 99 02/06/19 08:58 86 99 02/06/19 08:53 82 99 02/06/19 08:48 83 100 02/06/19 08:44 82 190/91 02/06/19 08:43 86 100 Intake and Output 02/06/19 02/07/19 02/07/19 23:59 07:59 15:59 Output Total 2950 1000 Balance -2950 -1000 Output: Urine 2950 1000 Indwelling Catheter 2950 400 Void 600 Other: Total, Output Amount 150 600 # Voids Indwelling Catheter 1 Void 1 - Exam Breasts: Present: normal Lungs: Present: Normal air movement Abdomen: Present: soft Uterus: Present: firm, fundal height below umbilicus Extremities: Present: normal Incision: Present: dressed - Labs Labs: Abnormal lab results 02/06/19 02/06/19 02/06/19 Range/Units 07:57 14:21 14:58 POC Glucose 124 H 157 H (70-105) Magnesium 5.30 H (1.7-2.3) mg/dL 02/06/19 02/06/19 02/06/19 Range/Units 16:27 22:32 22:51 POC Glucose 122 H 145 H (70-105) Magnesium 5.20 H (1.7-2.3) mg/dL 02/07/19 02/07/19 Range/Units 00:16 02:51 POC Glucose 148 H 106 H (70-105) Magnesium (1.7-2.3) mg/dL
[2019-02-07] MEDS: FERROUS SULFATE 325 MG TAB PO SCH (10:00)
[2019-02-07] MEDS: INSULIN LISPRO 100 UNIT/ML SUB-Q SCH ×4 (10:00→22:08)
--- NOTE | 2019-02-07 17:47 | Progress Note ---
Assessment and Plan / Hypoglycemia due to insulin s/p IV Glucagonx2 D50w, IV D5w and D10W cont to monitor BG q4h BG now stable / Gestational diabetes, likely resolved Patient is tightly controlled A1c is normal Low dose coverage for now with SSI as needed Accuchecks q4h and low dose s/s coverage. Will change to moderate S/s coverage once BG levels are above 150 consistently / HTN (hypertension) Cont antihypertensives / DVT prophylaxis On SCD's Subjective Date of service: 02/07/19 Principal diagnosis: s/p csec Interval history: patient seen and examined patient eating better, BG has been stable denies chest pain or SOB Objective - Exam Narrative Exam: General appearance: Present: no acute distress, well-nourished - EENT Eyes: PERRL, EOM intact ENT: hearing intact, clear oral mucosa Ears: bilateral: normal - Neck Neck: supple, normal ROM - Respiratory Respiratory effort: normal Respiratory: bilateral: CTA - Cardiovascular Rhythm: regular Heart Sounds: Present: S1 & S2. Absent: gallop, rub Extremities: pulses intact, No edema, normal color, Full ROM - Gastrointestinal General gastrointestinal: Present: soft, non-tender, non-distended, normal bowel sounds - Integumentary Integumentary: clear, warm, dry - Musculoskeletal Musculoskeletal: 1, strength equal bilaterally - Neurologic Neurologic: moves all extremities - Psychiatric Psychiatric: memory intact, appropriate mood/affect, intact judgment & insight - Constitutional Vitals: Vital Signs - 12hr 02/07/19 02/07/19 02/07/19 08:22 13:20 16:51 Temperature 97.6 F 98.4 F 97.9 F Pulse Rate 80 87 84 Respiratory 18 18 18 Rate Blood Pressure 147/81 100/56 132/77 O2 Sat by Pulse 97 98 100 Oximetry - Labs CBC & Chem 7: 02/06/19 11:26 02/05/19 19:20 Labs: Abnormal lab results 02/06/19 02/06/19 02/07/19 Range/Units 22:32 22:51 00:16 POC Glucose 145 H 148 H (70-105) Magnesium 5.20 H (1.7-2.3) mg/dL 02/07/19 02/07/19 Range/Units 02:51 13:32 POC Glucose 106 H 107 H (70-105) Magnesium (1.7-2.3) mg/dL
[2019-02-08] MEDS: INSULIN LISPRO 100 UNIT/ML SUB-Q SCH ×5 (02:10→19:21)
[2019-02-08] MEDS: IBUPROFEN 800 MG TAB PO PRN (02:36)
--- NOTE | 2019-02-08 06:51 | Progress Note ---
Assessment and Plan POD3 s/p c/s Preeclampsia s/p mag sulfate Insulin dependent DM. Continue accucheck q4h. Resume low dose Insulin when eating Will discuss with IM about disposition and follow up today Subjective - Subjective Date of service: 02/08/19 Principal diagnosis: s/p csec Patient reports: appetite normal, voiding normally, pain well controlled, flatus, ambulating normally [place]: doing well, in NICU Objective - Vital Signs Latest vital signs: Vital Signs Temp Pulse Resp BP Pulse Ox 02/07/19 22:05 83 127/68 02/07/19 21:57 83 127/68 99 02/07/19 16:51 97.9 F 84 18 132/77 100 02/07/19 13:20 98.4 F 87 18 100/56 98 02/07/19 08:22 97.6 F 80 18 147/81 97 Intake and Output 02/07/19 02/07/19 02/08/19 15:59 23:59 07:59 Output Total 600 Balance -600 Output: Urine 600 Void 600 Other: Total, Output Amount 600 # Voids Void 1 - Exam Breasts: Present: normal Cardiovascular: Present: Regular rate, Normal S1 Lungs: Present: Clear to auscultation, Normal air movement Abdomen: Present: normal appearance, soft, normal bowel sounds. Absent: distention, tenderness, guarding Uterus: Present: normal, firm, fundal height below umbilicus. Absent: bogginess, tenderness Extremities: Present: normal Deep Tendon Reflex Grade: Normal +2 Incision: Present: normal, dry, intact - Labs Labs: Abnormal lab results 02/07/19 02/07/19 02/08/19 Range/Units 13:32 22:08 06:21 POC Glucose 107 H 123 H 119 H (70-105)
[2019-02-08] MEDS: FERROUS SULFATE 325 MG TAB PO SCH ×2 (10:00→16:55)
--- NOTE | 2019-02-08 15:03 | Progress Note ---
Assessment and Plan / Hypoglycemia due to insulin s/p IV Glucagonx2 D50w, IV D5w and D10W cont to monitor BG qachs BG now stable / Gestational diabetes, likely resolved Patient is tightly controlled A1c is normal, Low dose coverage for now with SSI as needed Physical warrant to follow-up with PCP / HTN (hypertension) Cont antihypertensives / DVT prophylaxis On SCD's Medically stable for discharge. Subjective Date of service: 02/08/19 Principal diagnosis: s/p csec Interval history: patient seen and examined patient eating better, BG has been stable denies chest pain or SOB Plan for discharge today Objective - Exam Narrative Exam: General appearance: Present: no acute distress, well-nourished - EENT Eyes: PERRL, EOM intact ENT: hearing intact, clear oral mucosa Ears: bilateral: normal - Neck Neck: supple, normal ROM - Respiratory Respiratory effort: normal Respiratory: bilateral: CTA - Cardiovascular Rhythm: regular Heart Sounds: Present: S1 & S2. Absent: gallop, rub Extremities: pulses intact, No edema, normal color, Full ROM - Gastrointestinal General gastrointestinal: Present: soft, non-tender, non-distended, normal bowel sounds - Integumentary Integumentary: clear, warm, dry - Musculoskeletal Musculoskeletal: 1, strength equal bilaterally - Neurologic Neurologic: moves all extremities - Psychiatric Psychiatric: memory intact, appropriate mood/affect, intact judgment & insight - Constitutional Vitals: Vital Signs - 12hr 02/08/19 02/08/19 07:55 12:27 Temperature 98.2 F 98.1 F Pulse Rate 77 88 Respiratory 18 18 Rate Blood Pressure 141/75 128/80 [Left] - Labs CBC & Chem 7: 02/06/19 11:26 02/05/19 19:20 Labs: Abnormal lab results 02/07/19 02/08/19 02/08/19 Range/Units 22:08 06:21 08:27 POC Glucose 123 H 119 H 139 H (70-105) 02/08/19 Range/Units 12:37 POC Glucose 138 H (70-105)
--- NOTE | 2019-02-08 15:59 | Discharge Summary ---
Providers - Providers Date of Admission: 02/05/19 14:21 Date of discharge: 02/08/19 Attending physician: KATRINA FONG 02/05/19 19:35 Consult to Physician [CONS] Routine Comment: Consulting Provider: ELIAS WARREN Physician Instructions: Reason For Exam: 38 wks preg, hypoglycemia, diabetes, insulin Primary care physician: KATRINA FONG Hospitalization Reason for admission: induction of labor Delivery: Procedure: section Episiotomy: none Laceration: none Incision: normal, dry, intact Other procedures: none complications: none Discharge diagnosis: IUP at term delivered baby: male Hospital course: Patient had a repeat csec and gestational dm seen by IM on sliding scale. 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 Hx of pree s/p mag. Condition at discharge: Good Disposition: DC-01 TO HOME OR SELFCARE Plan - Discharge Medications Prescriptions: Ferrous Sulfate [Feosol 325 MG tab] 325 mg PO BID #30 tablet Lispro Insulin [HumaLOG] See Protocol SQ ACHS #10 ml Ibuprofen [Motrin] 600 mg PO Q8H PRN #30 tablet PRN Reason: Pain oxyCODONE /ACETAMINOPHEN [Percocet 5/325] 1 tab PO Q6HR PRN #30 tablet PRN Reason: Pain - Provider Discharge Summary Activity: routine, no sex for 6 weeks, no strenuous exercise Diet: routine Instructions: routine Additional instructions: [] Smoking cessation referral if applicable(refer to patient education folder for contact #) [] Refer to [facility]'s [facility] Booklet Call your doctor immediately for: * Fever > 100.5 * Heavy vaginal bleeding ( >1 pad per hour) * Severe persistent headache * Shortness of breath * Reddened, hot, painful area to leg or breast * Drainage or odor from incision. * Keep incision clean and dry at all times and follow doctor's instructions regarding bathing/showering - Follow up plan Follow up: KATRINA FONG MD [Primary Care Provider] - 7 Days Forms: [employer] Discharge Summary
[2019-02-08] MEDS: hydrALAZINE 20 MG/1 ML INJ IV PRN (16:50)
[2019-02-08] MEDS: oxyCODONE /ACETAMINOPHEN 5-325MG TAB PO PRN (22:53)
[2019-02-09] MEDS: IBUPROFEN 800 MG TAB PO PRN (08:15)
[2019-02-09] MEDS: FERROUS SULFATE 325 MG TAB PO SCH (11:00)
--- NOTE | 2019-02-09 14:46 | Progress Note ---
Assessment and Plan POD 3 s/p ltcs with post hypertension. Will add Procardia to the antihypertensive regimen. Continue to follow closely. Subjective - Subjective Date of service: 02/09/19 Principal diagnosis: s/p csec Interval history: Patient was to be discharged on yesterday but that was cancelled due to elevated blood pressure prior to discharge. Her blood pressure is still elevated. [place]: doing well, in NICU Objective - Vital Signs Latest vital signs: Vital Signs Temp Pulse Resp BP BP Pulse Ox 02/09/19 08:30 98.3 F 67 20 158/85 02/09/19 04:21 98.4 F 78 18 136/65 99 02/09/19 01:41 98.1 F 79 16 155/84 99 02/08/19 22:47 152/83 02/08/19 21:57 98.3 F 76 16 153/82 100 02/08/19 17:34 159/73 02/08/19 16:56 166/74 02/08/19 16:55 169/78 02/08/19 16:39 82 171/79 02/08/19 16:04 97.7 F 75 18 171/85 Intake and Output 02/08/19 02/09/19 02/09/19 22:59 06:59 14:59 Intake Total 720 320 Balance 720 320 Intake: Oral 480 320 Intake, Free Water 240 Other: Total, Intake Amount 480 320 # Voids Void 2 1 - Labs Labs: Abnormal lab results 02/08/19 Range/Units 19:10 POC Glucose 168 H (70-105)
[2019-02-09] MEDS: NIFEdipine XL 30 MG TAB PO SCH (14:47)
[2019-02-10] MEDS: IBUPROFEN 800 MG TAB PO PRN ×2 (00:39→09:09)
[2019-02-10] MEDS: FERROUS SULFATE 325 MG TAB PO SCH (09:11)
[2019-02-10] MEDS: NIFEdipine XL 30 MG TAB PO SCH (09:12)
[2019-02-10 09:35] VITALS: BP 136/78
--- NOTE | 2019-02-10 12:31 | Progress Note ---
Assessment and Plan POD 4 s/p ltcs. Pt had elevate Blood pressure post delivery, but is now in normal range. Plan for discharge on today. Subjective - Subjective Date of service: 02/10/19 Principal diagnosis: s/p csec Interval history: Patient was to be discharged on yesterday but that was cancelled due to elevated blood pressure prior to discharge. Her blood pressure is better controlled. Will plan for discharge today with an additional prescription for Procardia. Follow up in office next week. Patient reports: appetite normal, voiding normally, pain well controlled, ambulating normally : doing well Objective - Vital Signs Latest vital signs: Vital Signs Temp Pulse Resp BP BP Pulse Ox 02/10/19 09:09 20 02/10/19 08:10 97.9 F 69 18 136/78 02/10/19 05:13 98.2 F 73 18 131/80 95 02/10/19 00:40 99.7 F H 87 20 150/84 97 02/09/19 20:57 98.1 F 82 18 143/83 96 02/09/19 16:55 98 F 71 20 150/60 Intake and Output 02/09/19 02/10/19 02/10/19 22:59 06:59 14:59 Intake Total 320 240 120 Balance 320 240 120 Intake: Oral 320 240 120 Other: Total, Intake Amount 320 240 120 # Voids Void 1 1 - Exam Breasts: Present: deferred Cardiovascular: Present: Regular rate, Normal S1, Normal S2 Lungs: Present: Clear to auscultation, Normal air movement Abdomen: Present: normal appearance, soft, normal bowel sounds Vulva: both: normal Uterus: Present: normal, firm Extremities: Present: normal Deep Tendon Reflex Grade: Normal +2
--- NOTE | 2019-02-10 12:36 | Discharge Summary ---
Providers - Providers Date of Admission: 02/05/19 14:21 Date of discharge: 02/10/19 Attending physician: KATRINA FONG 02/05/19 19:35 Consult to Physician [CONS] Routine Comment: Consulting Provider: ELIAS WARREN Physician Instructions: Reason For Exam: 38 wks preg, hypoglycemia, diabetes, insulin Primary care physician: KATRINA FONG Hospitalization Delivery: Procedure: primary low transverse Discharge diagnosis: delivery Hospital course: Discharge postponed due to elevated blood pressure. Discharge on today Condition at discharge: Good Disposition: DC-01 TO HOME OR SELFCARE Plan - Discharge Medications Prescriptions: Ferrous Sulfate [Feosol 325 MG tab] 325 mg PO BID #30 tablet Lispro Insulin [HumaLOG] See Protocol SQ ACHS #10 ml Ibuprofen [Motrin] 600 mg PO Q8H PRN #30 tablet PRN Reason: Pain oxyCODONE /ACETAMINOPHEN [Percocet 5/325] 1 tab PO Q6HR PRN #30 tablet PRN Reason: Pain NIFEdipine XL [Procardia Xl] 30 mg PO QDAY #30 tablet - Provider Discharge Summary Activity: routine, no sex for 6 weeks, no heavy lifting 4 weeks, no strenuous exercise Diet: routine Instructions: routine Additional instructions: [] Smoking cessation referral if applicable(refer to patient education folder for contact #) [] Refer to [facility]'s [facility] Booklet Call your doctor immediately for: * Fever > 100.5 * Heavy vaginal bleeding ( >1 pad per hour) * Severe persistent headache * Shortness of breath * Reddened, hot, painful area to leg or breast * Drainage or odor from incision. * Keep incision clean and dry at all times and follow doctor's instructions regarding bathing/showering - Follow up plan Follow up: KATRINA FONG MD [Primary Care Provider] - 7 Days Forms: [facility] Discharge Summary
== END 2019-02-10 13:30 | disposition home or self-care (01) | DRG 765 ==
LOC: TRG 14:20 → APU 14:21 → LD 20:21 → OB 02-07 02:30
PROVIDERS: ADMIT Obstetrics & Gynecology; ATTEND Obstetrics & Gynecology
PROC: 10D00Z1 Extraction of Products of Conception, Low, Open Approach (ICD-10-PCS; principal; 2019-02-05)
PROC: 0UB70ZZ Excision of Bilateral Fallopian Tubes, Open Approach (ICD-10-PCS; 2019-02-05)
PROC: 3E0234Z Introduction of Serum, Toxoid and Vaccine into Muscle, Percutaneous Approach (ICD-10-PCS; 2019-02-06)
PROC: 3E0134Z Introduction of Serum, Toxoid and Vaccine into Subcutaneous Tissue, Percutaneous Approach (ICD-10-PCS; 2019-02-06)
DX: O11.4 Pre-existing hypertension with pre-eclampsia, complicating childbirth (principal); O41.03X0 Oligohydramnios, third trimester, not applicable or unspecified; O34.211 Maternal care for low transverse scar from previous cesarean delivery; O99.214 Obesity complicating childbirth; O24.92 Unspecified diabetes mellitus in childbirth; O99.824 Streptococcus B carrier state complicating childbirth; E11.649 Type 2 diabetes mellitus with hypoglycemia without coma; O34.13 Maternal care for benign tumor of corpus uteri, third trimester; D25.9 Leiomyoma of uterus, unspecified; E66.01 Morbid (severe) obesity due to excess calories; Z3A.38 38 weeks gestation of pregnancy; Z37.0 Single live birth; Z79.4 Long term (current) use of insulin; Z30.2 Encounter for sterilization; Z23 Encounter for immunization; Z82.49 Family history of ischemic heart disease and other diseases of the circulatory system; Z79.899 Other long term (current) drug therapy
CPT/HCPCS: 36415; 76819; 81001; 82565; 82947; 82962; 83036; 83615; 83735; 84450; 84460; 84550; 85014; 85018; 85027; 86850; 86900; 86901; 88302; G0378; J0360; J0690; J1610; J1815; J1885; J2370; J2405; J2590; J2765; J3475; J3490; J7030; J7070; J7120; J7121